=== PATIENT | female | born 1990 | race Caucasian/White ===

== ENCOUNTER 2020-11-26 07:21 | Inpatient (IN) ==
[2020-11-26] MEDS ORDERED: OXYTOCIN 30 UNITS/500 ML BAG IV PRN (08:23)
[2020-11-26 08:54] LABS: Hematocrit (blood only) 37.6 % (37-47); Hemoglobin 12.9 g/dL (12.0-16.0); Mean Corpuscular Hemoglobin 32.2 pg (25-34); Mean Corpuscular Hgb Conc 34.3 g/dL (32-36); Mean Corpuscular Volume 93.8 fL (80-100); Mean Platelet Volume 10.3 fL (7.4-10.4); Platelet Count 141 K/uL (130-400); RDW Coefficient of Variation 13.3 % (11.5-14.5); RDW Standard Deviation 45.7 fL (36.4-46.3); Red Blood Count 4.01 M/uL (4.2-5.4); White Blood Count 14.37 K/uL (4.8-10.8)
[2020-11-26] MEDS ORDERED: DINOPROSTONE 10 MG INSERT PV ONE (09:38)
--- NOTE | 2020-11-26 10:21 | History & Physical Report ---
Date of Service November 26, 2020 Assessment & Plan (1) Post-dates : Plan: Cervidil planned for cervical ripening discussed plan with patient and and are in agreement Admission and Anticipated Discharge Date Admission Date: November 26, 2020 History of Present Illness Chief Complaint: induction of labor for post-dates Primary Care Provider: Shannon Jurado, DO 30 F P0000 at 40.2 weeks with no problems here for induction of labor at 40.2 weeks. No contractions noted by patient. Allergies Allergy/AdvReac Type Severity Reaction Status Date / Time No Known Allergies Allergy Verified 11/26/20 08:15 Home Medications Medication Instructions Recorded Confirmed Type cetirizine 10 mg tablet (Zyrtec) 10 mg PO DAILY 11/26/20 11/26/20 History prenat.vits,aurelio,[id number] 1 tab PO DAILY 11/26/20 11/26/20 History Past Med/Surg History Medical History No known health problems Surgical History H/O wisdom tooth extraction Social History Smoking Status: Never smoker Hx Alcohol Use: No Hx Substance Use: No Preferred Language: Finnish Communication Ability: Effective Beliefs That Will Affect Care: None marital status: Current Living Situation: Spouse Other Information That Helps Us Care for You: No Feels Safe at Home: Yes Safety Concerns: Feels Safe At This Time Review of Systems Review of Systems: All systems reviewed & are unremarkable except as noted in HPI & below Physical Exam Constitutional: WD/WN, vitals as above Cardiovascular: RRR, no murmur, no edema Gastrointestinal (Abdomen): normal bowel sounds, soft, nontender, no hepatosplenomegaly Neurologic: patellar DTR's 2+ bilat, sensation intact Psychiatric: A+Ox3, euthymic affect Genitourinary: OB Exam Abdomen: + vertex and + estimated weight (8 lbs.) Manual OB Exam: + cervical dilation 1 cm, + cervical effacement 50% and + station high OB Exam Monitor Tracing: + external FHT monitor used, + external uterine monitor used, + category I and + normal FHT variability Cervix posterior and firm Cervidil 10 mg placed vaginally for cervical ripening Results & Data Results & Data ([facility]) Vital Signs (Past 12 Hours) Vital Signs Temp Pulse Resp BP 11/26/20 07:41 37.1 C 20 11/26/20 07:37 92 H 133/84 Laboratory Results 11/26/20 11/26/20 11/26/20 08:00 08:00 08:41 WBC 14.37 H RBC 4.01 L Hgb 12.9 Hct 37.6 MCV 93.8 MCH 32.2 MCHC 34.3 RDW Std Deviation 45.7 RDW Coeff of [place] 13.3 Plt Count 141 MPV 10.3 COVID-19 [facility] SARS-CoV-2, RNA, NAAT NEGATIVE Diagnostic Findings GBS is negative Covid is negative Code Status & VTE Plan VTE Prophylaxis Plan VTE Prophylaxis will be ordered: No
--- NOTE | 2020-11-26 22:34 | Labor Progress Brief Note ---
Date of Service November 26, 2020 Assessment & Plan Admission and Anticipated Discharge Date Admission Date: November 26, 2020 Physical Exam Genitourinary: Manual OB Exam: + cervical dilation 1 cm and 2 cm, + cervical effacement (cervix softening, will shower and eat and plan for PO Cytotec) 50% and + station high OB Exam Monitor Tracing: + external FHT monitor used, + external uterine monitor used, + category I and + normal FHT variability Results & Data ([facility]) Vital Signs (Past 12 Hours) Vital Signs Temp Pulse Resp BP 11/26/20 19:16 36.8 C 72 18 130/73 11/26/20 18:26 78 143/84 H 11/26/20 18:25 36.6 C 20 11/26/20 14:36 36.8 C 83 20 121/79 11/26/20 11:15 36.8 C 83 20 129/71
[2020-11-27] MEDS: miSOPROStoL 50 MCG TAB PO SCH ×2 (00:22→04:31)
[2020-11-27] MEDS ORDERED: BUTORPHANOL TARTRATE 1 MG/ML VIAL IV PRN (05:26)
[2020-11-27] MEDS ORDERED: ONDANSETRON INJ 2 MG/ML 2 ML VIAL IV PRN ×2 (05:26→07:15)
[2020-11-27] MEDS ORDERED: BUTORPHANOL TARTRATE 1 MG/ML VIAL ONE (05:28)
[2020-11-27] MEDS ORDERED: ONDANSETRON INJ 2 MG/ML 2 ML VIAL ONE (05:29)
[2020-11-27] MEDS: LACTATED RINGER'S 1,000 ML IV PRN ×3 (05:30→14:58)
[2020-11-27] MEDS ORDERED: SODIUM CHLORIDE 0.9% INJ 10 ML VIAL ONE (06:46)
[2020-11-27] MEDS ORDERED: BUPIVACAINE 0.25% 30 ML VIAL ONE (06:46)
[2020-11-27] MEDS ORDERED: ePHEDrine sulfate 50 MG/ML AMP ONE (06:46)
[2020-11-27] MEDS ORDERED: fentaNYL citrate 100 MCG/2 ML VIAL ONE (06:47)
[2020-11-27] MEDS ORDERED: fentaNYL 2MCG/ML ROPIVACAINE 1.25MG/ML 100 ML BAG EPI ONE (06:47)
[2020-11-27] MEDS ORDERED: fentaNYL 2MCG/ML ROPIVACAINE 1.25MG/ML 100 ML BAG EPI PRN (07:15)
[2020-11-27] MEDS ORDERED: ePHEDrine sulfate 50 MG/ML AMP IV PRN (07:15)
[2020-11-27] MEDS ORDERED: NALOXONE HCL 1 MG in SODIUM CHLORIDE 0.9% 1000ML 1,000 ML IV PRN (07:15)
[2020-11-27] MEDS ORDERED: diphenhydrAMINE 50 MG/ML VIAL IV PRN (07:15)
[2020-11-27] MEDS ORDERED: NALOXONE HCL 0.4 MG/1 ML VIAL/CARP IV PRN (07:15)
[2020-11-27] MEDS ORDERED: NALBUPHINE HCL INJ 10 MG/ML AMP IV PRN (07:15)
--- NOTE | 2020-11-27 07:20 | Anesthesiology Consultation ---
Date of Service November 27, 2020 Assessment & Plan Chart Review Chart Review: Patient NOT seen in Pre Admission Testing and Acceptable Risk for Labor Epidural Consults Requested none ASA ASA2 Proposed Anesthesia Anesthesia Type: Labor Epidural and CSE Risk / Benefits Reviewed With: PT / POA / Parent / Guardian, Accepts Plan and Informed Consent Obtained History Height/Weight Height: 5 ft 3 in Weight: 89.358 kg Allergies Allergy/AdvReac Type Severity Reaction Status Date / Time No Known Allergies Allergy Verified 11/26/20 08:15 Medications Home Medications Medication Instructions Recorded Confirmed Last Taken cetirizine 10 mg tablet (Zyrtec) 10 mg PO DAILY 11/26/20 11/26/20 11/25/20 21:00 prenat.vits,aurelio,[id number]-[id number]-ffmhn 1 tab PO DAILY 11/26/20 11/26/20 11/26/20 06:00 Active Medications Generic Name Dose Route Start Last Admin Trade Name Freq PRN Reason Stop Dose Admin Lactated Ringer's 1,000 mls @ 125 mls/hr 11/26/20 08:23 11/27/20 05:56 Lr IV 11/28/20 08:22 125 mls/hr .Q8H PRN Infusion L&D Protocol Protocol Misoprostol 50 mcg 11/27/20 00:00 11/27/20 04:31 Misoprostol 50 Mcg Tab PO 12/27/20 00:00 50 mcg Q4 GRACIA Administration NPO Date Last Intake of Fluids: 11/27/20 Time Last Intake of Fluids: 06:00 Date Last Intake of Solids: 11/26/20 Time Last Intake of Solids: 22:00 Past Medical History Medical History No known health problems Exercise / Class Metabolic Activity II 4-5 Yardwork/Stairs/Walk up hill Past Surgical History Surgical History H/O wisdom tooth extraction Past Anesthesia History No Hx of Anesthesia Complications and No Family Hx of Anesthesia Complications History of PONV No Hx of PONV and No Hx of Motion Sickness Social History Smoking Status: Never smoker Hx Alcohol Use: No Hx Substance Use: No Review of Systems no chest pain or sob Physical Exam Vital Signs Last Vital Signs Temp 36.8 C 11/27/20 04:25 Pulse 70 11/27/20 04:25 Resp 18 11/27/20 04:25 BP 130/69 11/27/20 04:25 SpO2 99 ENMT Mouth: no TMJ abnormality Thyromental Distance: > or= 3.5 Finger Breadths Mallampati Class: II Neck normal visual inspection Respiratory normal respiratory effort Auscultation: lungs clear to auscultation bilaterally Cardiovascular Rate/Rhythm: regular rate and regular rhythm Musculoskeletal Spine: normal cervical ROM Neurologic moves all extremities Psychiatric Orientation: alert and oriented x 3 Testing Laboratory Results 11/26/20 08:41
[2020-11-27] MEDS ORDERED: TERBUTALINE SULFATE 1 MG/ML VIAL ONE (08:17)
[2020-11-27] MEDS ORDERED: TERBUTALINE SULFATE 1 MG/ML VIAL SQ ONE (08:17)
--- NOTE | 2020-11-27 08:25 | Obstetrical Progress Note ---
Date of Service November 27, 2020 Assessment & Plan Admission and Anticipated Discharge Date Admission Date: November 26, 2020 Subjective Patient is seen and examined. I reviewed her records from office and confirmed with her. She is a 34-year-old G1, P0 at 40 weeks and 3 days of gestation, admitted for induction of labor for postdates yesterday. She has received Cervidil and then 2 doses of oral Cytotec. She started to have regular contractions this morning and received epidural for pain. She is comfortable now. No problems during this . GBS negative, coronavirus testing is negative. No history of STDs, no history of HSV, chlamydia, gonorrhea. Vital signs stable, afebrile, Vaginal exam, cervix is 5 cm dilated, 80% effaced, with bulging bag, AROM and with clear fluid, head at -1 station. heart rate had been category 1, baseline 120, scalp stimulation caused acceleration, deceleration to 90-100's after AROM. Noted to have contractions every 1 to 2 minutes, 6 contractions within 10 minutes, hyperstimulation. IV fluid bolus is started, nasal oxygen was given, she will be given terbutaline to relax the uterus, heart rate is back to 120s. Continue to monitor closely. Results & Data ([facility]) Vital Signs (Past 12 Hours) Vital Signs Temp Pulse Resp BP Pulse Ox 11/27/20 08:18 65 100 11/27/20 08:13 72 100 11/27/20 08:08 78 100 11/27/20 08:04 69 119/71 11/27/20 08:03 65 99 11/27/20 07:59 58 L 109/57 L 11/27/20 07:58 62 100 11/27/20 07:54 67 112/73 11/27/20 07:53 68 100 11/27/20 07:50 73 91 11/27/20 07:49 76 118/72 11/27/20 07:48 65 100 11/27/20 07:43 68 100 11/27/20 07:42 69 101/56 L 11/27/20 07:40 68 111/56 L 11/27/20 07:38 71 111/56 L 100 11/27/20 07:36 77 119/56 L 11/27/20 07:34 77 133/69 11/27/20 07:33 86 100 11/27/20 07:32 85 132/71 11/27/20 07:30 71 126/81 11/27/20 07:28 76 124/74 100 11/27/20 07:26 73 92 11/27/20 07:23 70 99 11/27/20 07:18 89 100 11/27/20 04:25 36.8 C 70 18 130/69 11/26/20 23:56 36.8 C 65 18 125/76
--- NOTE | 2020-11-27 08:44 | Obstetrical Progress Note ---
Date of Service November 27, 2020 Assessment & Plan Admission and Anticipated Discharge Date Admission Date: November 26, 2020 Subjective FHR 120's with good accels and moderate variability, no decels ctxs spaced out q 3 min Continue to monitor closely Results & Data ([facility]) Vital Signs (Past 12 Hours) Vital Signs Temp Pulse Resp BP Pulse Ox 11/27/20 08:38 69 100 11/27/20 08:35 60 107/60 11/27/20 08:33 72 100 11/27/20 08:28 66 100 11/27/20 08:23 68 100 11/27/20 08:20 57 L 18 117/70 11/27/20 08:18 65 100 11/27/20 08:13 72 100 11/27/20 08:08 78 100 11/27/20 08:04 69 18 119/71 11/27/20 08:03 65 99 11/27/20 07:59 58 L 109/57 L 11/27/20 07:58 62 100 11/27/20 07:54 67 112/73 11/27/20 07:53 68 100 11/27/20 07:50 73 18 91 11/27/20 07:49 76 118/72 11/27/20 07:48 65 100 11/27/20 07:45 18 11/27/20 07:43 68 100 11/27/20 07:42 69 101/56 L 11/27/20 07:40 68 20 111/56 L 11/27/20 07:38 71 111/56 L 100 11/27/20 07:36 77 119/56 L 11/27/20 07:34 77 133/69 11/27/20 07:33 86 100 11/27/20 07:32 85 132/71 11/27/20 07:30 71 126/81 11/27/20 07:28 76 124/74 100 11/27/20 07:26 73 92 11/27/20 07:23 70 99 11/27/20 07:18 89 100 11/27/20 04:25 36.8 C 70 18 130/69 11/26/20 23:56 36.8 C 65 18 125/76
[2020-11-27] MEDS ORDERED: OXYTOCIN 30 UNITS/500 ML BAG IV PRN ×2 (11:59→22:55)
--- NOTE | 2020-11-27 12:02 | Obstetrical Progress Note ---
Date of Service November 27, 2020 Assessment & Plan Admission and Anticipated Discharge Date Admission Date: November 26, 2020 Subjective Patient is reevaluated. She has been comfortable and no complaints. Vital signs stable, afebrile, heart rate had been category 1. Vaginal exam cervix is 6 cm dilated, 80% effaced, head at 0 station, coned head, sagittal suture transverse No accepted cervical change Will change positions and start low dose pitocin per protocol Continue to monitor Results & Data ([facility]) Vital Signs (Past 12 Hours) Vital Signs Temp Pulse Resp BP Pulse Ox 11/27/20 11:58 85 100 11/27/20 11:53 83 100 11/27/20 11:52 100 H 92 11/27/20 11:51 79 136/74 11/27/20 11:48 72 99 11/27/20 11:43 73 99 11/27/20 11:38 73 99 11/27/20 11:35 93 H 126/72 11/27/20 11:33 72 98 11/27/20 11:28 72 98 11/27/20 11:23 73 99 11/27/20 11:20 82 135/73 11/27/20 11:18 72 99 11/27/20 11:13 72 98 11/27/20 11:08 80 99 11/27/20 11:05 77 134/72 11/27/20 11:03 76 99 11/27/20 10:58 76 100 11/27/20 10:53 91 H 100 11/27/20 10:51 83 128/68 11/27/20 10:48 86 99 11/27/20 10:43 87 100 11/27/20 10:38 82 100 11/27/20 10:35 85 139/72 11/27/20 10:33 85 100 11/27/20 10:28 92 H 100 11/27/20 10:23 97 H 100 11/27/20 10:21 91 H 140/81 11/27/20 10:18 89 99 11/27/20 10:13 98 H 100 11/27/20 10:08 64 98 11/27/20 10:07 68 111/64 11/27/20 10:03 82 99 11/27/20 09:58 68 100 11/27/20 09:53 69 99 11/27/20 09:52 70 115/57 L 11/27/20 09:48 75 98 11/27/20 09:43 66 99 11/27/20 09:38 73 98 11/27/20 09:35 66 119/58 L 11/27/20 09:33 66 100 11/27/20 09:28 73 100 11/27/20 09:23 73 99 11/27/20 09:21 68 126/59 L 11/27/20 09:18 72 100 11/27/20 09:13 68 100 11/27/20 09:08 72 100 11/27/20 09:06 69 109/56 L 11/27/20 09:03 76 100 11/27/20 08:58 75 100 11/27/20 08:53 80 100 11/27/20 08:51 71 118/56 L 11/27/20 08:48 73 100 11/27/20 08:43 79 100 11/27/20 08:38 69 100 11/27/20 08:35 60 107/60 11/27/20 08:33 72 100 11/27/20 08:28 66 100 11/27/20 08:23 68 100 11/27/20 08:20 57 L 18 117/70 11/27/20 08:18 65 100 11/27/20 08:13 72 100 11/27/20 08:08 78 100 11/27/20 08:04 69 18 119/71 11/27/20 08:03 65 99 11/27/20 07:59 58 L 109/57 L 11/27/20 07:58 62 100 11/27/20 07:54 67 112/73 11/27/20 07:53 68 100 11/27/20 07:50 73 18 91 11/27/20 07:49 76 118/72 11/27/20 07:48 65 100 11/27/20 07:45 18 11/27/20 07:43 68 100 11/27/20 07:42 69 101/56 L 11/27/20 07:40 68 20 111/56 L 11/27/20 07:38 71 111/56 L 100 11/27/20 07:36 77 119/56 L 11/27/20 07:34 77 133/69 11/27/20 07:33 86 100 11/27/20 07:32 85 132/71 11/27/20 07:30 71 126/81 11/27/20 07:28 76 124/74 100 11/27/20 07:26 73 92 11/27/20 07:23 70 99 11/27/20 07:18 89 100 11/27/20 04:25 36.8 C 70 18 130/69
--- NOTE | 2020-11-27 14:39 | Obstetrical Progress Note ---
Date of Service November 27, 2020 Assessment & Plan Admission and Anticipated Discharge Date Admission Date: November 26, 2020 Subjective Patient is seen and examined. She feels well no complaints. Vital signs stable afebrile, heart rate has been category 1. External toco has been showing contractions every 1 to 2 minutes, mild to moderate with palpation per nursing team. Pitocin is at 6 mIU/min. Cervix is 6 to 7 cm, 80% effaced, head is coned, tip of the coned head is at +1 station, anterior fontanelle is at 5 o'clock position. IUPC is placed to monitor contractions more accurately, high baseline uterine tone at 50 mvu, increases to 60's with contractions, those felt mild with palpation Bed side US: unable to measure BPD/ HC due to head being in pelvis but AC: measuring 41-42 wks, FL 75 mm. EFW: 8-9 lb Plan to adjust pitocin per contraction pattern and continue to monitor closely Results & Data ([facility]) Vital Signs (Past 12 Hours) Vital Signs Temp Pulse Resp BP Pulse Ox 11/27/20 14:33 96 H 98 11/27/20 14:28 77 98 11/27/20 14:23 89 98 11/27/20 14:20 93 H 133/72 11/27/20 14:18 86 99 11/27/20 14:13 85 98 11/27/20 14:08 98 H 99 11/27/20 14:05 87 139/78 11/27/20 14:03 87 100 11/27/20 13:58 100 H 99 11/27/20 13:53 101 H 98 11/27/20 13:51 86 131/74 11/27/20 13:48 71 97 11/27/20 13:43 69 98 11/27/20 13:38 73 97 11/27/20 13:36 84 138/71 11/27/20 13:33 73 98 11/27/20 13:28 92 H 99 11/27/20 13:23 75 98 11/27/20 13:21 73 127/66 11/27/20 13:18 74 98 11/27/20 13:13 70 98 11/27/20 13:08 79 98 11/27/20 13:06 83 130/76 11/27/20 13:03 98 H 98 11/27/20 12:58 77 100 11/27/20 12:53 74 100 11/27/20 12:50 76 119/62 11/27/20 12:48 72 100 11/27/20 12:43 80 100 11/27/20 12:38 81 97 11/27/20 12:36 75 119/60 11/27/20 12:33 78 99 11/27/20 12:28 36.8 C 89 18 100 11/27/20 12:23 76 100 11/27/20 12:21 83 126/62 11/27/20 12:18 78 99 11/27/20 12:13 70 98 11/27/20 12:08 79 100 11/27/20 12:06 69 118/61 11/27/20 12:03 71 99 11/27/20 11:58 85 100 11/27/20 11:53 83 18 100 11/27/20 11:52 100 H 92 11/27/20 11:51 79 136/74 11/27/20 11:48 72 99 11/27/20 11:43 73 99 11/27/20 11:38 73 99 11/27/20 11:35 93 H 126/72 11/27/20 11:33 72 98 11/27/20 11:28 72 98 11/27/20 11:23 73 99 11/27/20 11:20 82 135/73 11/27/20 11:18 72 99 11/27/20 11:13 72 98 11/27/20 11:08 80 99 11/27/20 11:05 77 134/72 11/27/20 11:03 76 99 11/27/20 10:58 76 100 11/27/20 10:53 91 H 18 100 11/27/20 10:51 83 128/68 11/27/20 10:48 86 99 11/27/20 10:43 87 100 11/27/20 10:38 82 100 11/27/20 10:35 85 139/72 11/27/20 10:33 85 100 11/27/20 10:28 92 H 100 11/27/20 10:23 97 H 100 11/27/20 10:21 91 H 140/81 11/27/20 10:18 89 99 11/27/20 10:13 98 H 100 11/27/20 10:08 64 98 11/27/20 10:07 68 111/64 11/27/20 10:03 82 99 11/27/20 09:58 68 100 11/27/20 09:53 69 99 11/27/20 09:52 70 18 115/57 L 11/27/20 09:48 75 98 11/27/20 09:43 66 99 11/27/20 09:38 73 98 11/27/20 09:35 66 119/58 L 11/27/20 09:33 66 100 11/27/20 09:28 73 100 11/27/20 09:23 73 99 11/27/20 09:21 68 126/59 L 11/27/20 09:18 72 100 11/27/20 09:13 68 100 11/27/20 09:08 72 100 11/27/20 09:06 69 109/56 L 11/27/20 09:03 76 100 11/27/20 08:58 75 100 11/27/20 08:53 80 100 11/27/20 08:51 71 18 118/56 L 11/27/20 08:48 73 100 11/27/20 08:43 79 100 11/27/20 08:38 69 100 11/27/20 08:35 60 18 107/60 11/27/20 08:33 72 100 11/27/20 08:28 66 100 11/27/20 08:23 68 100 11/27/20 08:20 57 L 18 117/70 11/27/20 08:18 65 100 11/27/20 08:13 72 100 11/27/20 08:08 78 100 11/27/20 08:04 69 18 119/71 11/27/20 08:03 65 99 11/27/20 07:59 58 L 109/57 L 11/27/20 07:58 62 100 11/27/20 07:54 67 112/73 11/27/20 07:53 68 100 11/27/20 07:50 73 18 91 11/27/20 07:49 76 118/72 11/27/20 07:48 65 100 11/27/20 07:45 18 11/27/20 07:43 68 100 11/27/20 07:42 69 101/56 L 11/27/20 07:40 68 20 111/56 L 11/27/20 07:38 71 111/56 L 100 11/27/20 07:36 77 119/56 L 11/27/20 07:34 77 133/69 11/27/20 07:33 86 100 11/27/20 07:32 85 132/71 11/27/20 07:30 71 126/81 11/27/20 07:28 36.9 C 76 24 124/74 100 11/27/20 07:26 73 92 11/27/20 07:23 70 99 11/27/20 07:18 89 100 11/27/20 04:25 36.8 C 70 18 130/69
--- NOTE | 2020-11-27 17:07 | Obstetrical Progress Note ---
Date of Service November 27, 2020 Assessment & Plan Admission and Anticipated Discharge Date Admission Date: November 26, 2020 Results & Data ([facility]) Vital Signs (Past 12 Hours) Vital Signs Temp Pulse Resp BP Pulse Ox 11/27/20 15:13 73 98 11/27/20 15:08 83 98 11/27/20 15:05 77 141/82 H 11/27/20 15:03 79 99 11/27/20 14:58 87 97 11/27/20 14:53 80 99 11/27/20 14:50 86 148/68 H 11/27/20 14:48 99 H 100 11/27/20 14:43 80 99 11/27/20 14:38 80 99 11/27/20 14:36 82 152/65 H 11/27/20 14:33 96 H 98 11/27/20 14:28 77 98 11/27/20 14:23 89 98 11/27/20 14:20 93 H 133/72 11/27/20 14:18 86 99 11/27/20 14:13 85 98 11/27/20 14:08 98 H 99 11/27/20 14:05 87 139/78 11/27/20 14:03 87 100 11/27/20 13:58 100 H 99 11/27/20 13:53 101 H 98 11/27/20 13:51 86 131/74 11/27/20 13:48 71 97 11/27/20 13:43 69 98 11/27/20 13:38 73 97 11/27/20 13:36 84 138/71 11/27/20 13:33 73 98 11/27/20 13:28 92 H 99 11/27/20 13:23 75 98 11/27/20 13:21 73 127/66 11/27/20 13:18 74 98 11/27/20 13:13 70 98 11/27/20 13:08 79 98 11/27/20 13:06 83 130/76 11/27/20 13:03 98 H 98 11/27/20 12:58 77 100 11/27/20 12:53 74 100 11/27/20 12:50 76 119/62 11/27/20 12:48 72 100 11/27/20 12:43 80 100 11/27/20 12:38 81 97 11/27/20 12:36 75 119/60 11/27/20 12:33 78 99 11/27/20 12:28 36.8 C 89 18 100 11/27/20 12:23 76 100 11/27/20 12:21 83 126/62 11/27/20 12:18 78 99 11/27/20 12:13 70 98 11/27/20 12:08 79 100 11/27/20 12:06 69 118/61 11/27/20 12:03 71 99 11/27/20 11:58 85 100 11/27/20 11:53 83 18 100 11/27/20 11:52 100 H 92 11/27/20 11:51 79 136/74 11/27/20 11:48 72 99 11/27/20 11:43 73 99 11/27/20 11:38 73 99 11/27/20 11:35 93 H 126/72 11/27/20 11:33 72 98 11/27/20 11:28 72 98 11/27/20 11:23 73 99 11/27/20 11:20 82 135/73 11/27/20 11:18 72 99 11/27/20 11:13 72 98 11/27/20 11:08 80 99 11/27/20 11:05 77 134/72 11/27/20 11:03 76 99 11/27/20 10:58 76 100 11/27/20 10:53 91 H 18 100 11/27/20 10:51 83 128/68 11/27/20 10:48 86 99 11/27/20 10:43 87 100 11/27/20 10:38 82 100 11/27/20 10:35 85 139/72 11/27/20 10:33 85 100 11/27/20 10:28 92 H 100 11/27/20 10:23 97 H 100 11/27/20 10:21 91 H 140/81 11/27/20 10:18 89 99 11/27/20 10:13 98 H 100 11/27/20 10:08 64 98 11/27/20 10:07 68 111/64 11/27/20 10:03 82 99 11/27/20 09:58 68 100 11/27/20 09:53 69 99 11/27/20 09:52 70 18 115/57 L 11/27/20 09:48 75 98 07/30/21 09:43 66 99 11/27/20 09:38 73 98 11/27/20 09:35 66 119/58 L 11/27/20 09:33 66 100 11/27/20 09:28 73 100 11/27/20 09:23 73 99 11/27/20 09:21 68 126/59 L 11/27/20 09:18 72 100 11/27/20 09:13 68 100 11/27/20 09:08 72 100 11/27/20 09:06 69 109/56 L 11/27/20 09:03 76 100 11/27/20 08:58 75 100 11/27/20 08:53 80 100 11/27/20 08:51 71 18 118/56 L 11/27/20 08:48 73 100 11/27/20 08:43 79 100 11/27/20 08:38 69 100 11/27/20 08:35 60 18 107/60 11/27/20 08:33 72 100 11/27/20 08:28 66 100 11/27/20 08:23 68 100 11/27/20 08:20 57 L 18 117/70 11/27/20 08:18 65 100 11/27/20 08:13 72 100 11/27/20 08:08 78 100 11/27/20 08:04 69 18 119/71 11/27/20 08:03 65 99 11/27/20 07:59 58 L 109/57 L 11/27/20 07:58 62 100 11/27/20 07:54 67 112/73 11/27/20 07:53 68 100 11/27/20 07:50 73 18 91 11/27/20 07:49 76 118/72 11/27/20 07:48 65 100 11/27/20 07:45 18 11/27/20 07:43 68 100 11/27/20 07:42 69 101/56 L 11/27/20 07:40 68 20 111/56 L 11/27/20 07:38 71 111/56 L 100 11/27/20 07:36 77 119/56 L 11/27/20 07:34 77 133/69 11/27/20 07:33 86 100 11/27/20 07:32 85 132/71 11/27/20 07:30 71 126/81 07/30/21 07:28 36.9 C 76 24 124/74 100 11/27/20 07:26 73 92 11/27/20 07:23 70 99 11/27/20 07:18 89 100 11/27/20 04:25 36.8 C 70 18 130/69
--- NOTE | 2020-11-27 17:13 | Obstetrical Progress Note ---
Date of Service November 27, 2020 Assessment & Plan Admission and Anticipated Discharge Date Admission Date: November 26, 2020 Subjective Patient is reevaluated. She feels pressure in vagina. Vital signs stable afebrile, heart rate category 1, IUPC has been showing mild irregular contractions, [place] unit is between 110- 200, Pitocin has been increased till 14 mIU/min. Cervix is 7-8 cm, 80% head is called and at +1 station, IUPC is removed. External toco is applied and now showing contractions every 1 to 2 minutes with a higher amplitude. Assessment and plan 30-year-old G1, P0 at 40 weeks and 3 days of gestation induction of labor since yesterday, AROM around 9 hours ago with protracted labor, heart rate reassuring. Discussed continuing with Pitocin versus primary section. Discussed is a major surgery with risks including but not limited to bleeding, infection, injury to surrounding organs like bowels bladder, increased risk of DVT and longer recovery. Patient understands all and desires to continue with trial of labor. All questions were answered. Results & Data ([facility]) Vital Signs (Past 12 Hours) Vital Signs Temp Pulse Resp BP Pulse Ox 11/27/20 17:05 73 127/58 L 11/27/20 17:03 87 99 11/27/20 16:58 90 99 11/27/20 16:53 79 99 11/27/20 16:50 81 119/61 11/27/20 16:48 82 100 11/27/20 16:43 68 99 11/27/20 16:38 68 98 11/27/20 16:36 68 117/59 L 11/27/20 16:33 70 99 11/27/20 16:28 73 99 11/27/20 16:23 73 99 11/27/20 16:21 37.0 C 78 18 119/56 L 100 11/27/20 16:18 66 99 11/27/20 16:13 67 98 11/27/20 16:08 65 98 11/27/20 16:05 75 121/68 11/27/20 16:03 85 100 11/27/20 15:58 85 100 11/27/20 15:53 80 99 11/27/20 15:51 74 18 124/59 L 11/27/20 15:48 65 99 11/27/20 15:43 73 98 11/27/20 15:38 76 99 11/27/20 15:35 76 125/72 11/27/20 15:33 98 H 99 11/27/20 15:28 76 99 11/27/20 15:23 99 H 97 11/27/20 15:20 92 H 136/91 11/27/20 15:18 76 98 11/27/20 15:13 73 98 11/27/20 15:08 83 98 11/27/20 15:05 77 141/82 H 11/27/20 15:03 79 99 11/27/20 14:58 87 97 11/27/20 14:53 80 99 11/27/20 14:50 86 18 148/68 H 11/27/20 14:48 99 H 100 11/27/20 14:43 80 99 11/27/20 14:38 80 99 11/27/20 14:36 36.8 C 82 18 152/65 H 11/27/20 14:33 96 H 98 11/27/20 14:28 77 98 11/27/20 14:23 89 98 11/27/20 14:20 93 H 133/72 11/27/20 14:18 86 99 11/27/20 14:13 85 98 11/27/20 14:08 98 H 99 11/27/20 14:05 87 139/78 11/27/20 14:03 87 100 11/27/20 13:58 100 H 99 11/27/20 13:53 101 H 98 11/27/20 13:51 86 18 131/74 11/27/20 13:48 71 97 11/27/20 13:43 69 98 11/27/20 13:38 73 97 11/27/20 13:36 84 138/71 11/27/20 13:33 73 98 11/27/20 13:28 92 H 99 11/27/20 13:23 75 98 11/27/20 13:21 73 127/66 11/27/20 13:18 74 98 11/27/20 13:13 70 98 11/27/20 13:08 79 98 11/27/20 13:06 83 130/76 11/27/20 13:03 98 H 98 11/27/20 12:58 77 100 11/27/20 12:53 74 100 11/27/20 12:50 76 18 119/62 11/27/20 12:48 72 100 11/27/20 12:43 80 100 11/27/20 12:38 81 97 11/27/20 12:36 75 119/60 11/27/20 12:33 78 99 11/27/20 12:28 36.8 C 89 18 100 11/27/20 12:23 76 100 11/27/20 12:21 83 126/62 11/27/20 12:18 78 99 11/27/20 12:13 70 98 11/27/20 12:08 79 100 11/27/20 12:06 69 118/61 11/27/20 12:03 71 99 11/27/20 11:58 85 100 11/27/20 11:53 83 18 100 11/27/20 11:52 100 H 92 11/27/20 11:51 79 136/74 11/27/20 11:48 72 99 11/27/20 11:43 73 99 11/27/20 11:38 73 99 11/27/20 11:35 93 H 126/72 11/27/20 11:33 72 98 11/27/20 11:28 72 98 11/27/20 11:23 73 99 11/27/20 11:20 82 135/73 11/27/20 11:18 72 99 11/27/20 11:13 72 98 11/27/20 11:08 80 99 11/27/20 11:05 77 134/72 11/27/20 11:03 76 99 11/27/20 10:58 76 100 11/27/20 10:53 91 H 18 100 11/27/20 10:51 83 128/68 11/27/20 10:48 86 99 11/27/20 10:43 87 100 11/27/20 10:38 82 100 11/27/20 10:35 85 139/72 11/27/20 10:33 85 100 11/27/20 10:28 92 H 100 11/27/20 10:23 97 H 100 11/27/20 10:21 91 H 140/81 11/27/20 10:18 89 99 11/27/20 10:13 98 H 100 11/27/20 10:08 64 98 11/27/20 10:07 68 111/64 11/27/20 10:03 82 99 11/27/20 09:58 68 100 11/27/20 09:53 69 99 11/27/20 09:52 70 18 115/57 L 11/27/20 09:48 75 98 11/27/20 09:43 66 99 11/27/20 09:38 73 98 11/27/20 09:35 66 119/58 L 11/27/20 09:33 66 100 11/27/20 09:28 73 100 11/27/20 09:23 73 99 11/27/20 09:21 68 126/59 L 11/27/20 09:18 72 100 11/27/20 09:13 68 100 11/27/20 09:08 72 100 11/27/20 09:06 69 109/56 L 11/27/20 09:03 76 100 11/27/20 08:58 75 100 11/27/20 08:53 80 100 11/27/20 08:51 71 18 118/56 L 11/27/20 08:48 73 100 11/27/20 08:43 79 100 11/27/20 08:38 69 100 11/27/20 08:35 60 18 107/60 11/27/20 08:33 72 100 11/27/20 08:28 66 100 11/27/20 08:23 68 100 11/27/20 08:20 57 L 18 117/70 11/27/20 08:18 65 100 11/27/20 08:13 72 100 11/27/20 08:08 78 100 11/27/20 08:04 69 18 119/71 11/27/20 08:03 65 99 11/27/20 07:59 58 L 109/57 L 11/27/20 07:58 62 100 11/27/20 07:54 67 112/73 11/27/20 07:53 68 100 11/27/20 07:50 73 18 91 11/27/20 07:49 76 118/72 11/27/20 07:48 65 100 11/27/20 07:45 18 11/27/20 07:43 68 100 11/27/20 07:42 69 101/56 L 11/27/20 07:40 68 20 111/56 L 11/27/20 07:38 71 111/56 L 100 11/27/20 07:36 77 119/56 L 11/27/20 07:34 77 133/69 11/27/20 07:33 86 100 11/27/20 07:32 85 132/71 11/27/20 07:30 71 126/81 11/27/20 07:28 36.9 C 76 24 124/74 100 11/27/20 07:26 73 92 11/27/20 07:23 70 99 11/27/20 07:18 89 100
--- NOTE | 2020-11-27 19:42 | Obstetrical Progress Note ---
Date of Service November 27, 2020 Assessment & Plan Admission and Anticipated Discharge Date Admission Date: November 26, 2020 Subjective Patient is reevaluated. She feels some back pain but no pain in abdomen no pressure in vagina. Vital signs stable afebrile, heart rate reassuring, Cervix is fully dilated, head is at +2 station with caput. [place] is taken out and she had trial of pushes but does not feel any urge to push. Decrease epidural to half of baseline and labor down until she feels pressure or urge. Continue to monitor. Results & Data ([facility]) Vital Signs (Past 12 Hours) Vital Signs Temp Pulse Resp BP Pulse Ox 11/27/20 19:38 97 H 98 11/27/20 19:36 81 137/63 11/27/20 19:33 119 H 100 11/27/20 19:28 91 H 100 11/27/20 19:25 115 H 90 11/27/20 19:23 96 H 100 11/27/20 19:21 85 128/74 11/27/20 19:18 84 100 11/27/20 19:17 94 H 93 11/27/20 19:15 36.8 C 18 11/27/20 19:13 98 H 100 11/27/20 19:08 95 H 100 11/27/20 19:06 88 142/70 H 11/27/20 19:03 90 100 11/27/20 18:58 85 98 11/27/20 18:53 87 100 11/27/20 18:50 81 141/72 H 11/27/20 18:48 74 99 11/27/20 18:43 80 99 11/27/20 18:38 79 99 11/27/20 18:36 83 138/83 11/27/20 18:33 88 99 11/27/20 18:32 86 143/74 H 11/27/20 18:30 36.9 C 90 18 143/74 H 98 11/27/20 18:28 109 H 99 11/27/20 18:23 89 99 11/27/20 18:20 74 116/56 L 11/27/20 18:18 73 98 11/27/20 18:13 70 98 11/27/20 18:08 70 97 11/27/20 18:07 75 116/56 L 11/27/20 18:03 76 98 11/27/20 17:58 76 99 11/27/20 17:53 95 H 100 11/27/20 17:51 71 18 127/59 L 11/27/20 17:48 71 98 11/27/20 17:43 83 99 11/27/20 17:38 74 99 11/27/20 17:35 85 127/71 11/27/20 17:33 82 99 11/27/20 17:28 83 100 11/27/20 17:23 81 99 11/27/20 17:20 86 133/59 L 11/27/20 17:18 91 H 99 11/27/20 17:13 73 98 11/27/20 17:08 73 98 11/27/20 17:05 73 127/58 L 11/27/20 17:03 87 99 11/27/20 16:58 90 99 11/27/20 16:53 79 99 11/27/20 16:50 81 18 119/61 11/27/20 16:48 82 100 11/27/20 16:43 68 99 11/27/20 16:38 68 98 11/27/20 16:36 68 117/59 L 11/27/20 16:33 70 99 11/27/20 16:28 73 99 11/27/20 16:23 73 99 11/27/20 16:21 37.0 C 78 18 119/56 L 100 11/27/20 16:18 66 99 11/27/20 16:13 67 98 11/27/20 16:08 65 98 11/27/20 16:05 75 121/68 11/27/20 16:03 85 100 11/27/20 15:58 85 100 11/27/20 15:53 80 99 11/27/20 15:51 74 18 124/59 L 11/27/20 15:48 65 99 11/27/20 15:43 73 98 11/27/20 15:38 76 99 11/27/20 15:35 76 125/72 11/27/20 15:33 98 H 99 11/27/20 15:28 76 99 11/27/20 15:23 99 H 97 11/27/20 15:20 92 H 136/91 11/27/20 15:18 76 98 11/27/20 15:13 73 98 11/27/20 15:08 83 98 11/27/20 15:05 77 141/82 H 11/27/20 15:03 79 99 11/27/20 14:58 87 97 11/27/20 14:53 80 99 11/27/20 14:50 86 18 148/68 H 11/27/20 14:48 99 H 100 11/27/20 14:43 80 99 11/27/20 14:38 80 99 11/27/20 14:36 36.8 C 82 18 152/65 H 11/27/20 14:33 96 H 98 11/27/20 14:28 77 98 11/27/20 14:23 89 98 11/27/20 14:20 93 H 133/72 11/27/20 14:18 86 99 11/27/20 14:13 85 98 11/27/20 14:08 98 H 99 11/27/20 14:05 87 139/78 11/27/20 14:03 87 100 11/27/20 13:58 100 H 99 11/27/20 13:53 101 H 98 11/27/20 13:51 86 18 131/74 11/27/20 13:48 71 97 11/27/20 13:43 69 98 11/27/20 13:38 73 97 11/27/20 13:36 84 138/71 11/27/20 13:33 73 98 11/27/20 13:28 92 H 99 11/27/20 13:23 75 98 11/27/20 13:21 73 127/66 11/27/20 13:18 74 98 11/27/20 13:13 70 98 11/27/20 13:08 79 98 11/27/20 13:06 83 130/76 11/27/20 13:03 98 H 98 11/27/20 12:58 77 100 11/27/20 12:53 74 100 11/27/20 12:50 76 18 119/62 11/27/20 12:48 72 100 11/27/20 12:43 80 100 11/27/20 12:38 81 97 11/27/20 12:36 75 119/60 11/27/20 12:33 78 99 11/27/20 12:28 36.8 C 89 18 100 11/27/20 12:23 76 100 11/27/20 12:21 83 126/62 11/27/20 12:18 78 99 11/27/20 12:13 70 98 11/27/20 12:08 79 100 11/27/20 12:06 69 118/61 11/27/20 12:03 71 99 11/27/20 11:58 85 100 11/27/20 11:53 83 18 100 11/27/20 11:52 100 H 92 11/27/20 11:51 79 136/74 11/27/20 11:48 72 99 11/27/20 11:43 73 99 11/27/20 11:38 73 99 11/27/20 11:35 93 H 126/72 11/27/20 11:33 72 98 11/27/20 11:28 72 98 11/27/20 11:23 73 99 11/27/20 11:20 82 135/73 11/27/20 11:18 72 99 11/27/20 11:13 72 98 11/27/20 11:08 80 99 11/27/20 11:05 77 134/72 11/27/20 11:03 76 99 11/27/20 10:58 76 100 11/27/20 10:53 91 H 18 100 11/27/20 10:51 83 128/68 11/27/20 10:48 86 99 11/27/20 10:43 87 100 11/27/20 10:38 82 100 11/27/20 10:35 85 139/72 11/27/20 10:33 85 100 11/27/20 10:28 92 H 100 11/27/20 10:23 97 H 100 11/27/20 10:21 91 H 140/81 11/27/20 10:18 89 99 11/27/20 10:13 98 H 100 11/27/20 10:08 64 98 11/27/20 10:07 68 111/64 11/27/20 10:03 82 99 11/27/20 09:58 68 100 11/27/20 09:53 69 99 11/27/20 09:52 70 18 115/57 L 11/27/20 09:48 75 98 11/27/20 09:43 66 99 11/27/20 09:38 73 98 11/27/20 09:35 66 119/58 L 11/27/20 09:33 66 100 11/27/20 09:28 73 100 07/30/21 09:23 73 99 11/27/20 09:21 68 126/59 L 11/27/20 09:18 72 100 11/27/20 09:13 68 100 11/27/20 09:08 72 100 11/27/20 09:06 69 109/56 L 11/27/20 09:03 76 100 11/27/20 08:58 75 100 11/27/20 08:53 80 100 11/27/20 08:51 71 18 118/56 L 11/27/20 08:48 73 100 11/27/20 08:43 79 100 11/27/20 08:38 69 100 11/27/20 08:35 60 18 107/60 11/27/20 08:33 72 100 11/27/20 08:28 66 100 11/27/20 08:23 68 100 11/27/20 08:20 57 L 18 117/70 11/27/20 08:18 65 100 11/27/20 08:13 72 100 11/27/20 08:08 78 100 11/27/20 08:04 69 18 119/71 11/27/20 08:03 65 99 11/27/20 07:59 58 L 109/57 L 11/27/20 07:58 62 100 11/27/20 07:54 67 112/73 11/27/20 07:53 68 100 11/27/20 07:50 73 18 91 11/27/20 07:49 76 118/72 11/27/20 07:48 65 100 11/27/20 07:45 18 11/27/20 07:43 68 100 11/27/20 07:42 69 101/56 L
[2020-11-27] MEDS ORDERED: MINERAL OIL 30 ML UDC ONE ×2 (21:07→21:54)
--- NOTE | 2020-11-27 21:24 | Obstetrical Progress Note ---
Date of Service November 27, 2020 Assessment & Plan Admission and Anticipated Discharge Date Admission Date: November 26, 2020 Subjective Patient started to feel pressure and urge to push. She has been pushing for the last half an hour. Caput is partially visible during pushing upon opening the labia. Head is at +2-3 station. heart rate category 1. Contractions every 2 to 3 minutes. Continue to monitor closely. Results & Data ([facility]) Vital Signs (Past 12 Hours) Vital Signs Temp Pulse Resp BP Pulse Ox 11/27/20 21:18 104 H 99 11/27/20 21:13 127 H 99 11/27/20 21:08 95 H 98 11/27/20 21:03 95 H 99 11/27/20 21:00 36.8 C 18 11/27/20 20:58 90 99 11/27/20 20:53 88 98 11/27/20 20:51 92 H 140/87 11/27/20 20:48 98 H 99 11/27/20 20:43 103 H 99 11/27/20 20:38 109 H 100 11/27/20 20:36 97 H 157/83 H 11/27/20 20:33 110 H 90 11/27/20 20:28 110 H 99 11/27/20 20:27 111 H 93 11/27/20 20:23 103 H 93 11/27/20 20:22 99 H 93 11/27/20 20:20 90 127/60 11/27/20 20:18 83 99 11/27/20 20:13 79 100 11/27/20 20:08 83 99 11/27/20 20:06 93 H 140/78 11/27/20 20:03 91 H 99 11/27/20 19:59 99 H 93 11/27/20 19:58 107 H 100 11/27/20 19:53 106 H 93 11/27/20 19:51 82 139/66 11/27/20 19:48 80 100 11/27/20 19:43 87 99 11/27/20 19:38 97 H 98 11/27/20 19:36 81 137/63 11/27/20 19:33 119 H 100 11/27/20 19:28 91 H 100 11/27/20 19:25 115 H 90 11/27/20 19:23 96 H 100 11/27/20 19:21 85 128/74 11/27/20 19:18 84 100 11/27/20 19:17 94 H 93 11/27/20 19:15 36.8 C 18 11/27/20 19:13 98 H 100 11/27/20 19:08 95 H 100 11/27/20 19:06 88 142/70 H 11/27/20 19:03 90 100 11/27/20 18:58 85 98 11/27/20 18:53 87 100 11/27/20 18:50 81 141/72 H 11/27/20 18:48 74 99 11/27/20 18:43 80 99 11/27/20 18:38 79 99 11/27/20 18:36 83 138/83 11/27/20 18:33 88 99 11/27/20 18:32 86 143/74 H 11/27/20 18:30 36.9 C 90 18 143/74 H 98 11/27/20 18:28 109 H 99 11/27/20 18:23 89 99 11/27/20 18:20 74 116/56 L 11/27/20 18:18 73 98 11/27/20 18:13 70 98 11/27/20 18:08 70 97 11/27/20 18:07 75 116/56 L 11/27/20 18:03 76 98 11/27/20 17:58 76 99 11/27/20 17:53 95 H 100 11/27/20 17:51 71 18 127/59 L 11/27/20 17:48 71 98 11/27/20 17:43 83 99 11/27/20 17:38 74 99 11/27/20 17:35 85 127/71 11/27/20 17:33 82 99 11/27/20 17:28 83 100 11/27/20 17:23 81 99 11/27/20 17:20 86 133/59 L 11/27/20 17:18 91 H 99 11/27/20 17:13 73 98 11/27/20 17:08 73 98 11/27/20 17:05 73 127/58 L 11/27/20 17:03 87 99 11/27/20 16:58 90 99 11/27/20 16:53 79 99 11/27/20 16:50 81 18 119/61 11/27/20 16:48 82 100 11/27/20 16:43 68 99 11/27/20 16:38 68 98 11/27/20 16:36 68 117/59 L 11/27/20 16:33 70 99 11/27/20 16:28 73 99 11/27/20 16:23 73 99 11/27/20 16:21 37.0 C 78 18 119/56 L 100 11/27/20 16:18 66 99 11/27/20 16:13 67 98 11/27/20 16:08 65 98 11/27/20 16:05 75 121/68 11/27/20 16:03 85 100 11/27/20 15:58 85 100 11/27/20 15:53 80 99 11/27/20 15:51 74 18 124/59 L 11/27/20 15:48 65 99 11/27/20 15:43 73 98 11/27/20 15:38 76 99 11/27/20 15:35 76 125/72 11/27/20 15:33 98 H 99 11/27/20 15:28 76 99 11/27/20 15:23 99 H 97 11/27/20 15:20 92 H 136/91 11/27/20 15:18 76 98 11/27/20 15:13 73 98 11/27/20 15:08 83 98 11/27/20 15:05 77 141/82 H 11/27/20 15:03 79 99 11/27/20 14:58 87 97 11/27/20 14:53 80 99 11/27/20 14:50 86 18 148/68 H 11/27/20 14:48 99 H 100 11/27/20 14:43 80 99 11/27/20 14:38 80 99 11/27/20 14:36 36.8 C 82 18 152/65 H 11/27/20 14:33 96 H 98 11/27/20 14:28 77 98 11/27/20 14:23 89 98 11/27/20 14:20 93 H 133/72 11/27/20 14:18 86 99 11/27/20 14:13 85 98 11/27/20 14:08 98 H 99 11/27/20 14:05 87 139/78 11/27/20 14:03 87 100 11/27/20 13:58 100 H 99 11/27/20 13:53 101 H 98 11/27/20 13:51 86 18 131/74 11/27/20 13:48 71 97 11/27/20 13:43 69 98 11/27/20 13:38 73 97 11/27/20 13:36 84 138/71 11/27/20 13:33 73 98 11/27/20 13:28 92 H 99 11/27/20 13:23 75 98 11/27/20 13:21 73 127/66 11/27/20 13:18 74 98 11/27/20 13:13 70 98 11/27/20 13:08 79 98 11/27/20 13:06 83 130/76 11/27/20 13:03 98 H 98 11/27/20 12:58 77 100 11/27/20 12:53 74 100 11/27/20 12:50 76 18 119/62 11/27/20 12:48 72 100 11/27/20 12:43 80 100 11/27/20 12:38 81 97 11/27/20 12:36 75 119/60 11/27/20 12:33 78 99 11/27/20 12:28 36.8 C 89 18 100 11/27/20 12:23 76 100 11/27/20 12:21 83 126/62 11/27/20 12:18 78 99 11/27/20 12:13 70 98 11/27/20 12:08 79 100 11/27/20 12:06 69 118/61 11/27/20 12:03 71 99 11/27/20 11:58 85 100 11/27/20 11:53 83 18 100 11/27/20 11:52 100 H 92 11/27/20 11:51 79 136/74 11/27/20 11:48 72 99 11/27/20 11:43 73 99 11/27/20 11:38 73 99 11/27/20 11:35 93 H 126/72 11/27/20 11:33 72 98 11/27/20 11:28 72 98 11/27/20 11:23 73 99 11/27/20 11:20 82 135/73 11/27/20 11:18 72 99 11/27/20 11:13 72 98 11/27/20 11:08 80 99 0730/21 11:05 77 134/72 11/27/20 11:03 76 99 11/27/20 10:58 76 100 11/27/20 10:53 91 H 18 100 11/27/20 10:51 83 128/68 11/27/20 10:48 86 99 11/27/20 10:43 87 100 11/27/20 10:38 82 100 11/27/20 10:35 85 139/72 11/27/20 10:33 85 100 11/27/20 10:28 92 H 100 11/27/20 10:23 97 H 100 11/27/20 10:21 91 H 140/81 11/27/20 10:18 89 99 11/27/20 10:13 98 H 100 11/27/20 10:08 64 98 11/27/20 10:07 68 111/64 11/27/20 10:03 82 99 11/27/20 09:58 68 100 11/27/20 09:53 69 99 11/27/20 09:52 70 18 115/57 L 11/27/20 09:48 75 98 11/27/20 09:43 66 99 11/27/20 09:38 73 98 11/27/20 09:35 66 119/58 L 11/27/20 09:33 66 100 11/27/20 09:28 73 100 11/27/20 09:23 73 99
[2020-11-27] MEDS ORDERED: LIDOCAINE 1% LOCAL 20 ML VIAL ONE (22:30)
[2020-11-27] MEDS ORDERED: oxyCODONE/ACETAMINOPHEN 5mg/325mg TAB PO PRN (22:55)
[2020-11-27] MEDS ORDERED: bisacodyL 10 MG SUPP PR PRN (22:55)
[2020-11-27] MEDS ORDERED: DIPHTHERIA/TETANUS/PERTUSSIS 0.5 ML SYR/VIAL IM ONE (22:55)
[2020-11-27] MEDS ORDERED: MEASLES, MUMPS & RUBELLA VIRUS VIAL SQ ONE (22:55)
[2020-11-27] MEDS ORDERED: BENZOCAINE 20% AER SPR 82.5 GM CAN EXT PRN (22:55)
[2020-11-27] MEDS ORDERED: HYDROCORTISONE ACETATE 25 MG SUPP PR PRN (22:55)
[2020-11-27] MEDS: IBUPROFEN 600 MG TAB PO PRN (23:47)
[2020-11-27] MEDS: METHYLERGONOVINE MALEATE 0.2 MG TAB PO SCH (23:48)
[2020-11-27] MEDS: SUPERCREAM 0.870% 15 GM JAR EXT PRN (23:48)
--- NOTE | 2020-11-27 23:59 | Delivery Summary ---
DATE OF DELIVERY: 11/27/2020. TIME: 22:23 p.m. DETAILS OF DELIVERY: The patient was found to be fully dilated and desired to push. She pushed for about 1-1/2 hours after a protracted labor and the head was over the tight perineum and sinking back in to the pelvis, suggesting impending shoulder dystocia. The mother was exhausted, decision was made to open the right mediolateral episiotomy to aid for delivery of the head and shoulders. After it was opened, head was delivered and turtle sign was noted. The bed was lowered down and nursing team was noted of shoulder dystocia and with hyperflexion of the legs, Clara maneuver, posterior arm and shoulder ( which were right side) were delivered without difficulty and then anterior shoulder and arm came without difficulty. Baby was handed off to the mother where mouth and nose were suctioned. Baby had terminal meconium and covered with meconium. Cord was clamped x2 and cut and baby was handed to the pediatric tea. The cord blood was obtained and then vagina and perineum were checked for lacerations. There was a mediolateral episiotomy, which was opened earlier. Rest of the vagina was intact. It was repaired with 2-0 Vicryl in a running locked fashion bringing the vaginal mucosa together, bulbocavernosus muscles together and skin in a subcuticular fashion. Excellent hemostasis was achieved. Rest of the vagina and labia were intact and then placenta was found to be in the vagina, delivered spontaneous as intact and complete. Uterus was explored and found to be empty. Lower segment was cleared of all clots and debris. Fundus was firm. ESTIMATED BLOOD LOSS: 250 mL IV oxytocin was started. Mom and baby tolerated the procedure well. Baby was a viable male infant, Apgars 7/9, weight is 4180 gr. Sponge, lap, needle count was correct x 2. No complications happened other than mild shoulder dystocia. I was present during whole procedure. Job ID: [id number] [facility]
[2020-11-28] MEDS: IBUPROFEN 600 MG TAB PO PRN ×4 (04:52→21:35)
[2020-11-28] MEDS: METHYLERGONOVINE MALEATE 0.2 MG TAB PO SCH ×5 (04:53→20:25)
[2020-11-28 06:01] LABS: Hematocrit (blood only) 34.1 % (37-47); Hemoglobin 11.7 g/dL (12.0-16.0); Mean Corpuscular Hemoglobin 32.1 pg (25-34); Mean Corpuscular Hgb Conc 34.3 g/dL (32-36); Mean Corpuscular Volume 93.4 fL (80-100); Mean Platelet Volume 10.6 fL (7.4-10.4); Platelet Count 127 K/uL (130-400); RDW Coefficient of Variation 13.2 % (11.5-14.5); RDW Standard Deviation 45.9 fL (36.4-46.3); Red Blood Count 3.65 M/uL (4.2-5.4); White Blood Count 26.42 K/uL (4.8-10.8)
--- NOTE | 2020-11-28 07:32 | Obstetrical Progress Note ---
Date of Service November 28, 2020 Assessment & Plan Admission and Anticipated Discharge Date Admission Date: November 26, 2020 Subjective Patient is seen and examined. She feels well, no complaints. Ambulating without dizziness Voiding without difficulty Tolerating regular diet with out N&V Bleeding is minimal No fever/ chills/ CP/ SOB/ N&V/ Leg pain Breast feeding without problems Vital Signs Temp Pulse Pulse Resp BP BP Pulse Ox 11/28/20 05:00 36.9 C 86 18 126/77 11/28/20 02:00 37.3 C 94 H 18 126/78 11/28/20 00:52 107 H 132/82 11/28/20 00:50 18 11/28/20 00:22 107 H 141/79 H 11/27/20 23:51 104 H 158/80 H 11/27/20 23:50 36.7 C 18 11/27/20 23:36 104 H 145/64 H 11/27/20 23:21 105 H 139/61 11/27/20 23:20 18 11/27/20 23:05 100 H 138/63 11/27/20 22:50 36.3 C L 18 11/27/20 22:49 93 H 136/74 11/27/20 22:20 114 H 134/80 11/27/20 21:39 102 H 95 11/27/20 21:38 116 H 181/75 H 11/27/20 21:35 116 H 91 11/27/20 21:34 109 H 97 11/27/20 21:30 20 11/27/20 21:28 127 H 97 11/27/20 21:24 108 H 90 11/27/20 21:23 102 H 98 11/27/20 21:18 104 H 99 11/27/20 21:13 127 H 99 11/27/20 21:08 95 H 98 11/27/20 21:03 95 H 99 11/27/20 21:00 36.8 C 18 11/27/20 20:58 90 99 11/27/20 20:53 88 98 11/27/20 20:51 92 H 140/87 11/27/20 20:48 98 H 99 11/27/20 20:43 103 H 99 11/27/20 20:38 109 H 100 11/27/20 20:36 97 H 157/83 H 11/27/20 20:33 110 H 90 11/27/20 20:28 110 H 99 11/27/20 20:27 111 H 93 11/27/20 20:23 103 H 93 11/27/20 20:22 99 H 93 11/27/20 20:20 90 127/60 11/27/20 20:18 83 99 11/27/20 20:13 79 100 11/27/20 20:08 83 99 11/27/20 20:06 93 H 140/78 11/27/20 20:03 91 H 99 11/27/20 19:59 99 H 93 11/27/20 19:58 107 H 100 11/27/20 19:53 106 H 93 11/27/20 19:51 82 139/66 11/27/20 19:48 80 100 11/27/20 19:43 87 99 11/27/20 19:38 97 H 98 11/27/20 19:36 81 137/63 11/27/20 19:33 119 H 100 Lab Results 11/26/20 11/26/20 11/26/20 Range/Units 08:00 08:00 08:41 WBC 14.37 H (4.8-10.8) K/uL RBC 4.01 L (4.2-5.4) M/uL Hgb 12.9 (12.0-16.0) g/dL Hct 37.6 (37-47) % MCV 93.8 (80-100) fL MCH 32.2 (25-34) pg MCHC 34.3 (32-36) g/dL RDW Std Deviation 45.7 (36.4-46.3) fL RDW Coeff of [place] 13.3 (11.5-14.5) % Plt Count 141 (130-400) K/uL MPV 10.3 (7.4-10.4) fL COVID-19 Eval Order Covid19 [facility] SARS-CoV-2, RNA, NAAT NEGATIVE (NEGATIVE) 11/28/20 Range/Units 05:43 WBC 26.42 H (4.8-10.8) K/uL RBC 3.65 L (4.2-5.4) M/uL Hgb 11.7 L (12.0-16.0) g/dL Hct 34.1 L (37-47) % MCV 93.4 (80-100) fL MCH 32.1 (25-34) pg MCHC 34.3 (32-36) g/dL RDW Std Deviation 45.9 (36.4-46.3) fL RDW Coeff of [place] 13.2 (11.5-14.5) % Plt Count 127 L (130-400) K/uL MPV 10.6 H (7.4-10.4) fL COVID-19 Eval Order SARS-CoV-2, RNA, NAAT (NEGATIVE) PE: General: Alert, orientedx3, NAD Abd: soft, NT, fundus firm, below Umbilicus Perineum intact, Lochia rubra minimal Ext; NT, no edema AP: 30 yo s/p , ppd# 1 VSS Afebrile doing well CBC in am Continue routine care All questions were answered D/C home in am Breast Results & Data ([facility]) Vital Signs (Past 12 Hours) Vital Signs Temp Pulse Pulse Resp BP BP Pulse Ox 11/28/20 05:00 36.9 C 86 18 126/77 11/28/20 02:00 37.3 C 94 H 18 126/78 11/28/20 00:52 107 H 132/82 11/28/20 00:50 18 11/28/20 00:22 107 H 141/79 H 11/27/20 23:51 104 H 158/80 H 11/27/20 23:50 36.7 C 18 11/27/20 23:36 104 H 145/64 H 11/27/20 23:21 105 H 139/61 11/27/20 23:20 18 11/27/20 23:05 100 H 138/63 11/27/20 22:50 36.3 C L 18 11/27/20 22:49 93 H 136/74 11/27/20 22:20 114 H 134/80 11/27/20 21:39 102 H 95 11/27/20 21:38 116 H 181/75 H 11/27/20 21:35 116 H 91 11/27/20 21:34 109 H 97 11/27/20 21:30 20 11/27/20 21:28 127 H 97 11/27/20 21:24 108 H 90 11/27/20 21:23 102 H 98 07/30/21 21:18 104 H 99 11/27/20 21:13 127 H 99 11/27/20 21:08 95 H 98 11/27/20 21:03 95 H 99 11/27/20 21:00 36.8 C 18 11/27/20 20:58 90 99 11/27/20 20:53 88 98 11/27/20 20:51 92 H 140/87 11/27/20 20:48 98 H 99 11/27/20 20:43 103 H 99 11/27/20 20:38 109 H 100 11/27/20 20:36 97 H 157/83 H 11/27/20 20:33 110 H 90 11/27/20 20:28 110 H 99 11/27/20 20:27 111 H 93 11/27/20 20:23 103 H 93 11/27/20 20:22 99 H 93 11/27/20 20:20 90 127/60 11/27/20 20:18 83 99 11/27/20 20:13 79 100 11/27/20 20:08 83 99 11/27/20 20:06 93 H 140/78 11/27/20 20:03 91 H 99 11/27/20 19:59 99 H 93 11/27/20 19:58 107 H 100 11/27/20 19:53 106 H 93 11/27/20 19:51 82 139/66 11/27/20 19:48 80 100 11/27/20 19:43 87 99 11/27/20 19:38 97 H 98 11/27/20 19:36 81 137/63 11/27/20 19:33 119 H 100
[2020-11-28] MEDS: DOCUSATE SODIUM 100 MG CAP PO SCH ×2 (08:45→20:25)
[2020-11-28] MEDS: PRENATAL VITAMIN 1 TAB PO SCH (08:45)
[2020-11-28] MEDS: FERROUS SULFATE 325 MG TAB PO SCH (08:45)
--- NOTE | 2020-11-28 09:55 | Anesthesia Procedure Note ---
Date of Service November 28, 2020 Anesthesia Post Epidural Note Vital Signs Vital Signs: Temp Pulse Resp BP Pulse Ox 36.5 C 89 16 120/79 98 11/28/20 08:20 11/28/20 08:20 11/28/20 08:20 11/28/20 08:20 11/28/20 08:20 Pain Intensity Left Hip: Pain Intensity: 4 Bilateral Episiotomy/Laceration: Pain Intensity: 2 Notes Mental Status: alert / awake / arousable Nausea / Vomiting: adequately controlled Pain: adequately controlled Airway Patency, RR, SpO2: stable & adequate BP & HR: stable & adequate Hydration State: stable & adequate Neuraxial Anesthesia: was administered and sensory block is resolving Anesthetic Complications: no major complications apparent Epidural: Removed without complications and With tip intact
[2020-11-28] MEDS: SUPERCREAM 0.870% 15 GM JAR EXT PRN (10:05)
[2020-11-28] MEDS: ACETAMINOPHEN 325 MG TAB PO PRN ×2 (12:44→18:18)
[2020-11-28] MEDS ORDERED: bisacodyL 5 MG TABEC PO SCH (20:00)
[2020-11-29] MEDS: IBUPROFEN 600 MG TAB PO PRN (05:16)
[2020-11-29 05:41] LABS: Basophils # (auto) 0.02 K/uL (0-0.2); Basophils % (auto) 0.1 %; Eosinophils # (auto) 0.16 K/uL (0-0.5); Hematocrit (blood only) 29.9 % (37-47); Hemoglobin 9.6 g/dL (12.0-16.0); Immature Granulocytes # (auto) 0.07 K/uL (0.00-0.02); Immature Granulocytes % (auto) 0.4 %; Lymphocytes # (auto) 1.96 K/uL (1.2-3.4); Lymphocytes % (auto) 11.8 %; Mean Corpuscular Hgb Conc 32.1 g/dL (32-36); Mean Corpuscular Volume 96.5 fL (80-100); Mean Platelet Volume 10.3 fL (7.4-10.4); Monocytes % (auto) 7.2 %; Neutrophils # (auto) 13.17 K/uL (1.4-6.5); Neutrophils % (auto) 79.5 %; Platelet Count 102 K/uL (130-400); RDW Coefficient of Variation 13.8 % (11.5-14.5); RDW Standard Deviation 48.5 fL (36.4-46.3); White Blood Count 16.58 K/uL (4.8-10.8)
[2020-11-29] MEDS: DOCUSATE SODIUM 100 MG CAP PO SCH (07:34)
[2020-11-29] MEDS: FERROUS SULFATE 325 MG TAB PO SCH (07:34)
[2020-11-29] MEDS: PRENATAL VITAMIN 1 TAB PO SCH (07:34)
--- NOTE | 2020-11-29 10:33 | Obstetrical Progress Note ---
Date of Service November 29, 2020 Physical Exam Constitutional WD/WN, vitals as above Gastrointestinal (Abdomen) Abdomen soft and non-tender fundus firm no edema neg Noreen's for d/c today Results & Data ([facility]) Vital Signs (Past 12 Hours) Vital Signs Temp Pulse Resp BP Pulse Ox 11/29/20 07:50 36.5 C 71 16 128/82 100 11/29/20 00:45 36.6 C 81 18 114/75 Laboratory Results Laboratory Results - last 72 hr 11/28/20 11/29/20 05:43 05:17 WBC 26.42 H 16.58 H RBC 3.65 L 3.10 L Hgb 11.7 L 9.6 L Hct 34.1 L 29.9 L MCV 93.4 96.5 MCH 32.1 31.0 MCHC 34.3 32.1 RDW Std Deviation 45.9 48.5 H RDW Coeff of [place] 13.2 13.8 Plt Count 127 L 102 L MPV 10.6 H 10.3 Immature Gran % (Auto) 0.4 Neut % (Auto) 79.5 Lymph % (Auto) 11.8 [place] % (Auto) 7.2 Eos % (Auto) 1.0 Baso % (Auto) 0.1 Neut # (Auto) 13.17 H Lymph # (Auto) 1.96 [place] # (Auto) 1.20 H Eos # (Auto) 0.16 Baso # (Auto) 0.02 Immature Gran # (Auto) 0.07 H
== END 2020-11-29 12:15 | disposition home or self-care (01) | DRG 807 ==
LOC: 4S1 07:21 → 4S2 11-28 01:30

== ENCOUNTER 2023-03-20 15:34 | Inpatient (IN) ==
[2023-03-20] MEDS ORDERED: LACTATED RINGER'S 1,000 ML IV PRN (16:48)
[2023-03-20] MEDS ORDERED: ACETAMINOPHEN 650 MG SUPP PR PRN (16:55)
[2023-03-20] MEDS ORDERED: ONDANSETRON INJ 2 MG/ML 2 ML VIAL IV PRN ×2 (16:55→17:32)
[2023-03-20] MEDS ORDERED: BUTORPHANOL TARTRATE 1 MG/ML VIAL IV PRN (16:56)
[2023-03-20] MEDS ORDERED: ePHEDrine sulfate 50 MG/ML AMP ONE (17:07)
[2023-03-20] MEDS ORDERED: fentANYL 2 MCG/ML BUPIVacaine 0.125%-NSS 100ML BAG ONE (17:07)
[2023-03-20] MEDS ORDERED: fentaNYL citrate PF 100 MCG/2 ML VIAL ONE (17:07)
--- NOTE | 2023-03-20 17:07 | Obstetrical Progress Note ---
Date of Service March 20, 2023 Assessment & Plan (1) demise > 22 weeks, delivered, current hospitalization: Admission and Anticipated Discharge Date Admission Date: March 20, 2023 Results & Data Vital Signs (Past 12 Hours) Vital Signs Temp Pulse Resp BP 03/20/23 16:13 88 117/56 L 03/20/23 15:48 37.4 C 18
[2023-03-20] MEDS ORDERED: SODIUM CHLORIDE 0.9% PF INJ 10 ML VIAL ONE (17:08)
[2023-03-20] MEDS ORDERED: LIDOCAINE 2%/EPINEPHRINE 1:200,000 20 ML PF ONE (17:08)
[2023-03-20] MEDS ORDERED: BUPIVACAINE 0.25% PF 30 ML VIAL ONE (17:08)
--- NOTE | 2023-03-20 17:09 | Obstetrical Progress Note ---
Date of Service March 20, 2023 Assessment & Plan (1) demise > 22 weeks, delivered, current hospitalization: Plan demise at 15+ weeks sono done at [facility] office today VE; /post pt admitted for vag delivery pt calvin every 2-4 mins Epidural ordered Cytotec Q4 anticipate VD Admission and Anticipated Discharge Date Admission Date: March 20, 2023 Results & Data Vital Signs (Past 12 Hours) Vital Signs Temp Pulse Resp BP 03/20/23 16:13 88 117/56 L 03/20/23 15:48 37.4 C 18
[2023-03-20 17:22] LABS: Hematocrit (blood only) 38.5 % (37.0-47.0); Hemoglobin 13.5 g/dl (12.0-16.0); Mean Corpuscular Hemoglobin 31.6 pg (25.0-34.0); Mean Corpuscular Hgb Conc 35.1 g/dL (32.0-36.0); Mean Corpuscular Volume 90.2 fL (80.0-100.0); Mean Platelet Volume 9.6 fL (9.4-12.4); Platelet Count 159 K/uL (130-400); RDW Coefficient of Variation 12.4 % (11.5-14.5); RDW Standard Deviation 40.9 fL (36.4-46.3); Red Blood Count 4.27 M/uL (4.20-5.40); White Blood Count 25.03 K/ul (4.8-10.8)
[2023-03-20] MEDS ORDERED: MIDAZOLAM HCL 1 MG/ML 2ML VIAL ONE (17:26)
[2023-03-20] MEDS ORDERED: NALOXONE HCL 0.4 MG/1 ML VIAL/CARP IV PRN (17:32)
[2023-03-20] MEDS ORDERED: diphenhydrAMINE 50 MG/ML VIAL IV PRN (17:32)
[2023-03-20] MEDS ORDERED: ROPIVACAINE 0.5% PF 5 MG/ML 20 ML VIAL EPI PRN (17:32)
[2023-03-20] MEDS ORDERED: LIDOCAINE 2%/EPINEPHRINE 1:200,000 20 ML PF EPI STA (17:32)
[2023-03-20] MEDS ORDERED: fentANYL 2 MCG/ML BUPIVacaine 0.125%-NSS 100ML BAG EPI PRN (17:32)
[2023-03-20] MEDS ORDERED: fentaNYL citrate PF 100 MCG/2 ML VIAL EPI PRN (17:32)
[2023-03-20] MEDS ORDERED: NALOXONE HCL 1 MG in SODIUM CHLORIDE 0.9% 1,000 ML IV PRN (17:32)
[2023-03-20] MEDS ORDERED: BUPIVACAINE 0.25% PF 30 ML VIAL EPI STA (17:32)
[2023-03-20] MEDS ORDERED: ePHEDrine sulfate 50 MG/ML AMP IV PRN (17:32)
[2023-03-20] MEDS ORDERED: NALBUPHINE HCL 5 MG in SYRINGE 0 ML IV PRN (17:32)
[2023-03-20] MEDS ORDERED: SODIUM CHLORIDE 0.9% PF INJ 10 ML VIAL EPI STA (17:32)
[2023-03-20] MEDS ORDERED: PROMETHAZINE HCL 6.25 MG in SODIUM CHLORIDE 0.9% 50 ML IV PRN (17:32)
[2023-03-20] MEDS ORDERED: SODIUM CHLORIDE 0.9% PF INJ 10 ML VIAL EPI PRN (17:32)
[2023-03-20] MEDS ORDERED: LIDOCAINE 2% MPF LOCAL 5 ML VIAL EPI PRN (17:32)
[2023-03-20] MEDS ORDERED: BUPIVACAINE 0.25% PF 30 ML VIAL EPI PRN (17:32)
[2023-03-20] MEDS ORDERED: fentaNYL citrate PF 100 MCG/2 ML VIAL EPI STA (17:32)
--- NOTE | 2023-03-20 17:32 | Anesthesiology Consultation ---
Date of Service March 20, 2023 Assessment & Plan Chart Review Chart Review: Patient NOT seen in Pre Admission Testing and Acceptable Risk for Labor Epidural Consults Requested none ASA ASA2 Proposed Anesthesia Anesthesia Type: Labor Epidural Risk / Benefits Reviewed With: PT / POA / Parent / Guardian, Accepts Plan and Informed Consent Obtained History Height/Weight Height: 5 ft 3 in Weight: 67 kg Allergies Allergy/AdvReac Type Severity Reaction Status Date / Time No Known Allergies Allergy Verified 03/20/23 16:29 Medications Home Medications Medication Instructions Recorded Confirmed Last Taken cetirizine 10 mg tablet (Zyrtec) 10 mg PO DAILY 11/26/20 11/26/20 11/25/20 21:00 prenat.vits,aurelio,[id number] 1 tab PO DAILY 11/26/20 03/20/23 03/20/23 ibuprofen 600 mg tablet 600 mg PO Q4H PRN fever or pain 11/29/20 Unknown #30 tabs Active Medications Generic Name Dose Route Start Last Admin Trade Name Freq PRN Reason Stop Dose Admin Lactated Ringer's 1,000 mls @ 125 mls/hr 03/20/23 16:48 03/20/23 17:09 Lr IV 03/22/23 16:47 125 mls/hr .Q8H PRN Infusion L&D Protocol Protocol Past Medical History Medical History No known health problems Exercise / Class Metabolic Activity II 4-5 Yardwork/Stairs/Walk up hill Past Surgical History Surgical History H/O wisdom tooth extraction Past Anesthesia History No Hx of Anesthesia Complications and No Family Hx of Anesthesia Complications History of PONV No Hx of PONV and No Hx of Motion Sickness Social History Smoking Status: Never smoker Hx Alcohol Use: No Hx Substance Use: No Physical Exam Vital Signs Last Vital Signs Temp 37.4 C 03/20/23 15:48 Pulse 88 03/20/23 16:13 Resp 18 03/20/23 15:48 BP 117/56 L 03/20/23 16:13 ENMT Mouth: no dentition abnormality Thyromental Distance: > or= 3.5 Finger Breadths Mallampati Class: II Neck normal visual inspection Respiratory normal respiratory effort Auscultation: lungs clear to auscultation bilaterally Cardiovascular Rate/Rhythm: regular rate and regular rhythm Psychiatric Orientation: alert Testing Laboratory Results 03/20/23 17:10
[2023-03-20 17:54] LABS: Partial Thromboplastin Time 27.1 Seconds (21.0-31.0); Prothrombin Time 11.3 Seconds (9.0-12.0)
--- NOTE | 2023-03-20 18:26 | Obstetrical Progress Note ---
Date of Service March 20, 2023 Assessment & Plan (1) demise > 22 weeks, delivered, current hospitalization: Plan: Delivered demise. placenta delivered spontaneously as well No laceration or tears Cytotec 1000mg given rectally Admission and Anticipated Discharge Date Admission Date: March 20, 2023 Results & Data Vital Signs (Past 12 Hours) Vital Signs Temp Pulse Resp BP Pulse Ox 03/20/23 18:23 96 H 100 03/20/23 18:22 96 H 120/56 L 03/20/23 18:18 97 H 100 03/20/23 18:16 89 118/62 03/20/23 18:13 100 03/20/23 18:13 100 H 03/20/23 18:13 103 H 122/61 03/20/23 18:08 93 H 100 03/20/23 18:06 105 H 141/63 H 03/20/23 18:04 96 H 163/63 H 03/20/23 18:03 103 H 100 03/20/23 18:02 100 H 124/59 L 03/20/23 18:00 96 H 120/58 L 03/20/23 17:58 100 03/20/23 17:58 91 H 03/20/23 17:58 81 121/57 L 03/20/23 17:56 100 H 116/58 L 03/20/23 17:54 98 H 120/59 L 03/20/23 17:53 94 H 100 03/20/23 17:52 93 H 115/59 L 03/20/23 17:50 83 122/60 03/20/23 17:48 95 H 120/59 L 100 03/20/23 17:46 93 H 120/59 L 03/20/23 17:44 84 123/58 L 03/20/23 17:43 98 H 100 03/20/23 17:39 101 H 94 03/20/23 17:38 101 H 95 03/20/23 17:35 94 H 136/62 03/20/23 17:33 98 H 100 03/20/23 16:13 88 117/56 L 03/20/23 15:48 37.4 C 18
[2023-03-20] MEDS ORDERED: BENZOCAINE 20% SPRY 85 APPLN/85 GM CAN EXT PRN (18:34)
[2023-03-20] MEDS ORDERED: IBUPROFEN 600 MG TAB PO PRN (18:34)
[2023-03-20] MEDS ORDERED: bisacodyL 10 MG SUPP PR PRN (18:34)
[2023-03-20] MEDS ORDERED: DIPHTHERIA/TETANUS/PERTUSSIS Vaccine (Tdap, Age 7+yrs) 0.5mL SYR/VL IM ONE (18:34)
[2023-03-20] MEDS ORDERED: HYDROCORTISONE ACETATE 25 MG SUPP PR PRN (18:34)
[2023-03-20] MEDS ORDERED: miSOPROStoL 200 MCG TAB PR ONE (18:34)
[2023-03-20] MEDS ORDERED: ACETAMINOPHEN 325 MG TAB PO PRN (18:34)
--- NOTE | 2023-03-20 18:34 | Delivery Summary ---
Vaginal Delivery Summary Date of Service March 20, 2023 Vaginal Delivery Summary DELIVERY NOTE Patient delivered a nonviable fetus. it was delivered and given to mother. Cord is cut and placenta spontaneously delivered Placenta is in pieces Inspection of the perineum showed no laceration or tears. Estimated blood loss is 400 cc per Rectal Cytotec is given to control bleeding pt stable in in the recovery
[2023-03-20] MEDS ORDERED: miSOPROStoL 200 MCG TAB ONE (18:41)
[2023-03-20] MEDS ORDERED: miSOPROStoL 200 MCG TAB PV SCH (20:00)
[2023-03-20 20:14] LABS: Estimated Average Glucose 100 mg/dl; Hemoglobin A1C 5.1 % (4.5-5.6)
--- NOTE | 2023-03-20 20:15 | Anesthesia Procedure Note ---
Date of Service March 20, 2023 Anesthesia Post Epidural Note Vital Signs Vital Signs: Temp Pulse Resp BP Pulse Ox 36.8 C 108 H 18 122/61 100 03/20/23 19:22 03/20/23 20:07 03/20/23 19:51 03/20/23 20:07 03/20/23 18:28 Notes Mental Status: alert / awake / arousable Nausea / Vomiting: adequately controlled Pain: adequately controlled Airway Patency, RR, SpO2: stable & adequate BP & HR: stable & adequate Hydration State: stable & adequate Neuraxial Anesthesia: was administered and sensory block is resolving Anesthetic Complications: no major complications apparent and Pt Satisfied with anesthetic care Epidural: Removed without complications and With tip intact
[2023-03-20] MEDS ORDERED: DOCUSATE SODIUM 100 MG CAP PO SCH (21:00)
[2023-03-20 22:30] LABS: Amphetamines+Metham, Urine Neg (Neg); Barbiturates, Urine Neg (Neg); Benzodiazepine, Urine Pos (Neg); Cocaine, Urine Neg (Neg); MDMA (Ecstacy), Urine Neg (Neg); Marijuana, Urine Neg (Neg); Methadone, Urine Neg (Neg); Opiate, Urine Neg (Neg); Phencyclidine, Urine Neg (Neg)
--- OUTSIDE RECORDS SUMMARY | 2023-03-20 23:42 | External Medical Summary ---
Author Name Unknown Address Unknown Organization [id number]:[facility] [place] [facility] [address] [place] [address] Laboratory Report Ordering Provider Test Date Status CHRISTINESAW 01/31/2023 14:33:28 Final Observation Date Value Abnormality Reference (Units ) Status Chlamydia trachomatis rRNA [Presence] in Specimen by MANFRED with probe detection 01/31/2023 14:33:28 Negative Negative Final No Chlamydia trachomatis det ected by financial processing clerk-mediated nucleic acid amplification. Neisseria gonorrhoeae rRNA [ Presence] in Specimen by MANFRED with probe detection 01/31/2023 14:33:28 Negative Negative Final No Neisseria gonorrhoeae det ected by financial processing clerk-mediated nucleic acid amplification. Performing Location [facility] [place] [address] [place] [address]
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
--- OUTSIDE RECORDS SUMMARY | 2023-03-20 23:42 | External Medical Summary | Summary of Care ---
Author Name Unknown Organization [facility] Address [address] [place] [address] Phone [phone] Care Team Providers Care Credit Analysis Manager Name Role Phone SawMayecourtney Amesceferino Primary Care Provider Reason for Visit * Reason Onset Date Comments Order Request 01/06/2023 Dating US Encounter Details Date Type Department Care Team Description 01/06/2023 Telephone Gynecology/Obstetrics [facility] [address] [place] [address] Jena Jiang CRNP [address] [place] [address] Order Request (Dating US) Allergies No known active allergiesdocumented as of this encounter (statuses as of 01/06/2023) Medications Medication Sig Dispensed Refills Start Date End Date Status cetirizine (ZYRTEC) 10 MG Tablet Take 10 mg by mouth. 1 tab twice daily 0 Active [place]-3 Fatty Acids (FISH OIL) 1000 MG Capsule Take 1 Capsule by mouth in the morning. 0 Active Womens Multi Oral Capsule Take by mouth . 0 Active guaiFENesin ER 600 MG Oral Tablet Extended Release 12 Hour (Mucinex)Indications :Acute maxillary sinusitis, recurrence not specified Take 1 Tablet by mouth 2 times a day as needed for Congestion. Take with plenty of water. Do not cut, crush or chew 40 Tablet 2 09/13/2022 Active Vitamin B Complex Oral Tablet Take 1 Tablet by mouth in the morning. 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 documented as of this encounter (statuses as of 01/06/2023) Resolved Problems Problem Noted Date Resolved Date Supervision of normal first 04/16/2020 01/11/2021 Viral URI with cough 06/29/2016 05/17/2017 Viral pharyngitis 06/29/2016 05/17/2017 Chronic rhinitis 06/29/2016 02/17/2017 Migraine 04/12/2022 documented as of this encounter (statuses as of 01/06/2023) Immunizations Name Administration Dates Next Due COVID-19 mRNA, LNP-s, No Pre serve, 2-Dose Series (Moderna) 03/10/2021,02/10/2021 TDAP (age 10 and older)(Boostrix) 09/01/2020,09/26/2024 documented as of this encounter Social History Tobacco Use Types Packs/Day Years Used Date Smoking Tobacco: Never Smokeless Tobacco: Never Comments:no passive smoke Alcohol Use Standard Drinks/Week Comments Yes 0 (1 standard drink = 0.6 oz pur e alcohol) Rare Food Insecurity Answer Date Recorded Within the past 12 months, y ou worried that your food would run out before you got money to buy more. Never true 07/09/2019 Within the past 12 months, t he food you bought just didn't last and you didn't have money to get more. Never true 07/09/2019 Sex Assigned at Date Recorded Not on file Job Start Date Occupation Industry Not on file Not on file Not on file documented as of this encounter Miscellaneous Notes * Telephone Encounter - KEO Powell - 01/06/2023 10:21 AM EDT Order linked * Telephone Encounter - KEO Powell - 01/06/2023 9:17 AM EDT Dating US scheduled prior to NOB; Please place order and send back to me documented in this encounter Plan of Treatment Upcoming Encounters Date Type Specialty Care Team Description 01/26/2023 Nurse Only Gynecology Obstetrics Gw, Nurse Motorcycle Delivery Driver New [address] [place] [address] 01/31/2023 Imaging Radiology 01/31/2023 Office Visit Gynecology Obstetrics Jena Jiang CRNP [address] [place] [address] 02/20/2023 Office Visit Gynecology Obstetrics Judith Thomas PA-C [address] [place] [address] 05/11/2023 Office Visit Family Medicine Dagoberto Spring DO [address] [place] [address] Scheduled Orders Name Type Priority Associated Diagnoses Orde r Schedule US PELVIS TRANS-VAGINAL OB Medical Imaging Routine Early stage of Expected: 01/06/2023 (Approximate), Expires: 02/06/2024 Health Maintenance Due Date Last Done Comments Hepatitis B (1 of 3 - 3-dose series) 1989 GARDASIL-HPV IMMUNIZATION SERIES (2 - 3-dose series) 10/24/2014 09/26/2014 (Declined) COVID-19 Vaccine (3 - Moderna series) 05/05/2021 03/10/2021, 02/10/2021 PAP SMEAR-ANNUAL AGES 18-100 01/11/2022 01/11/2021, 01/02/2018, 01/02/2018, Additional history exists Influenza Vaccine (FLU shot) (#1) 2022 02/07/2020 Depression Screening 04/12/2023 04/12/2022 DTaP,Tdap,and Td Vaccines (3 - Td or Tdap) 09/01/2030 09/01/2020, 09/26/2014 Hepatitis C Screening Discontinued MENINGOCOCCAL (MENACTRA/MENVEO) Aged Out No longer eligible based on patient's age to complete this topic Pneumococcal Vaccine: Pediatrics (0 to 5 Years) and At-Risk Patients (6 to 64 Years) Aged Out No longer eligible based on patient's age to complete this topic documented as of this encounter Medical Devices Not on filedocumented as of this encounter Visit Diagnoses Diagnosis Early stage of - Primary documented in this encounter Care Teams Credit Analysis Manager Relationship Specialty Start Date End Date Dagoberto Spring DO [address] [place] [address] PCP - General Family Medicine 04/12/22 documented as of this encounter
--- OUTSIDE RECORDS SUMMARY | 2023-03-20 23:42 | External Medical Summary | Summary of Care ---
Author Name Unknown Organization [facility] Address [address] [facility] [place] [address] Phone [phone] Care Team Providers Care Supply Chain Logistics Manager Name Role Phone Saw Dagoberto Amesceferino Primary Care Provider Reason for Visit * Reason Comments Return Visit Encounter Details Date Type Department Care Team (Late st Contact Info) Description 02/28/2023 9:15 AM EDT Office Visit Gynecology/[facility]st[facility] s [facility] [address] [place] [address] Jena Jiang CRNP [address] [place] [address] Encounter for supervision of other normal in first trimester* Allergies No known active allergiesdocumented as of this encounter (statuses as of 02/28/2023) Medications Medication Sig Dispensed Refills Start Date End Date Status cetirizine (ZYRTEC) 10 MG Tablet Take 1 Tablet by mouth. 1 tab twice daily 0 Active [place]-3 Fatty Acids (FISH OIL) 1000 MG Capsule Take 1 Capsule by mouth in the morning. 0 Active /Iron Oral Tablet Take by mouth. 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 Estimated Date of Delivery Comme nts Yes 09/11/2023 Based on last me nstrual period of 12/05/2022 (Exact Date) documented as of this encounter (statuses as of 02/28/2023) Resolved Problems Problem Noted Date Diagnosed Date Resolved Date Supervision of normal first 04/16/2020 01/11/2021 Viral URI with cough 06/29/2016 018 Viral pharyngitis 06/29/2016 05/17/2017 Chronic rhinitis 06/29/2016 02/17/2017 Migraine 04/12/2022 documented as of this encounter (statuses as of 02/28/2023) Immunizations Name Administration Dates Next Due COVID-19 [...] = 0.6 oz pur e alcohol) Rare PHQ-2 Answer Date Recorded PHQ Adult Total Score 0 04/12/2022 Hunger Vital Sign Answer Date Recorded Within the past 12 months, y ou worried that your food would run out before you got the money to buy more. Never true 01/31/20 23 Within the past 12 months, t he food you bought just didn't last and you didn't have money to get more. Never true 01/30/2023 [place]man Depression Scale Answer Date Recorded [place] Depression Scale Total 7 01/31/2023 The thought of harming myself has occurred to me . Never 01/31/2023 Estimated Date of Delivery Comme nts Yes 09/11/2023 Based on last me nstrual period of 12/05/2022 (Exact Date) Sex and Gender Information Value Date Recorded Sex Assigned at Female 01/30/2023 1:37 PM EDT Gender Identity Female 01/30/2023 1:37 PM EDT Sexual Orientation Straight 07/09/2019 8: 58 AM EDT Job Start Date Occupation Industry Not on file Not on file Not on file documented as of this encounter Last Filed Vital Signs Vital Sign Reading Time Taken Comments Blood Pressure 100/62 02/28/2023 9:14 AM EDT Pulse - - Temperature - - Respiratory Rate - - Oxygen Saturation - - Inhaled Oxygen Concentration - - Weight 68.5 kg (151 lb) 02/28/2023 9:14 AM EDT Height 160 cm (5' 3") 02/28/2023 9:14 AM EDT Body Mass Index 26.75 02/28/2023 9:14 AM EDT documented in this encounter Progress Notes * Jena Jiang CRNP - 02/28/2023 9:26 AM EDT 12w1d Having vaginal itching and discharge. Feels like a yeast infection. Suggested Monistat 7, call if no relief. No other concerns. No n/v or bleeding. Desires Qnatal, order printed for [employer] lab. SHIMA Davis documented in this encounter Nursing Notes * Lili Olson LPN - 02/28/2023 9:16 AM EDT 12w1d Itching, yellow discharge. documented in this encounter Plan of Treatment Upcoming Encounters Date Type Department Care Team (Late st Contact Info) Description 03/28/2023 8:15 AM EST Office Visit Gynecology/Obstetrics [facility] [address] [place] [address] Jena Jiang CRNP [address] [place] [address] 05/11/2023 10:20 AM EST Office Visit Family Practice [facility] [address] [place] [address] Dagoberto Spring DO [address] [place] [address] Scheduled Orders Name Type Priority Associated Diagnoses Orde r Schedule QNATAL ADVANCED (QUEST) Lab Routine Encounter for supervision of other normal in first trimester Ordered: 02/28/2023 Health Maintenance Due Date Last Done Comments Hepatitis B (1 of 3 - 3-dose series) 1989 GARDASIL-HPV IMMUNIZATION SERIES (2 - 3-dose series) 10/24/2014 09/26/2014 (Declined) PAP SMEAR-ANNUAL AGES 18-100 01/11/2022, 01/02/2018, 01/02/2018, Additional history exists COVID-19 Vaccine (3 - 2022-24 season) 2022 03/10/2021, 02/10/2021 Depression Screening 04/12/2023 04/12/2022 DTaP,Tdap,and Td Vaccines (3 - Td or Tdap) 09/01/2030 09/01/2020, 09/26/2014 Influenza Vaccine (FLU shot) Completed 01/31/2023, 02/07/2020 MENINGOCOCCAL (MENACTRA/MENVEO) Aged Out No longer eligible based on patient's age to complete this topic Pneumococcal Vaccine: Pediatrics (0 to 5 Years) and At-Risk Patients (6 to 64 Years) Aged Out No longer eligible based on patient's age to complete this topic documented as of this encounter Medical Devices Not on filedocumented as of this encounter Visit Diagnoses Diagnosis Encounter for supervision of other normal in first trimester- Primary documented in this encounter Care Teams Supply Chain Logistics Manager Relationship Specialty Start Date End Date Dagoberto Spring DO [address] [place] [address] PCP - General Family Medicine 04/12/22 documented as of this encounter
--- OUTSIDE RECORDS SUMMARY | 2023-03-20 23:42 | External Medical Summary | Summary of Care ---
Author Name Unknown Organization [facility] Address [address] [facility] [address] Phone [phone] Care Team Providers Care Networking Technology Instructor Name Role Phone SawMayecourtney Amesceferino Primary Care Provider Encounter Details Date Type Department Care Team (Late st Contact Info) Description 03/20/2023 Telephone Gynecology/Obstetrics [facility] [address] [place] [address] James Chandler MD [address] [place] [address] Allergies No known active allergiesdocumented as of this encounter (statuses as of 03/20/2023) Medications Medication Sig Dispensed Refills Start Date End Date Status cetirizine (ZYRTEC) 10 MG Tablet Take 1 Tablet by mouth. 1 tab twice daily 0 Active [place]-3 Fatty Acids (FISH OIL) 1000 MG Capsule Take 1 Capsule by mouth in the morning. 0 Active /Iron Oral Tablet Take by mouth. 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 Never true 01/30/2023 [place] Depression Scale Answer Date Recorded [place] Depression Scale Total 7 01/31/2023 The thought [...] encounter Miscellaneous Notes * Telephone Encounter - Marietta Salcido LPN - 03/20/2023 8:[address] Chandler said it is safe to monitor, if fever is persistent and not reduced with Tylenol or greater than 104.0 then she should see urgent care or ER. Comfort measures for round ligament pain. Patient agreeable to monitor and will let us know if anything changes. * Telephone Encounter - Marietta Salcido LPN - 03/20/2023 8:09 AM EST Pt is currently 15w0d with an Estimated Date of Delivery: 09/11/23 - Patient called with what she thought was round ligament pain/cramping. But then yesterday she started having body aches and fever 100.5. She did take Tylenol last night 1000 mgs. Temp this am 99.8. She states she is drinking plenty of fluids. Denies any vaginal bleeding. Will review with Dr. Chandler, patient requested an appointment but we do not have any openings in theoffice today. Her next scheduled appt is 03/28 with Jena documented in this encounter Plan of Treatment Upcoming Encounters Date Type Department Care Team (Late st Contact Info) Description 03/28/2023 8:15 AM EST Office Visit Gynecology/Obstetrics [facility] [address] [place] [address] Jena Jiang CRNP [address] [place] [address] 05/11/2023 10:20 AM EST Office Visit Family Practice [facility] [address] [place] [address] Dagoberto Spring DO [address] [place] [address] Health Maintenance Due Date Last Done Comments [...] Not on filedocumented as of this encounter Care Teams Networking Technology Instructor Relationship Specialty Start Date End Date Dagoberto Spring DO [address] [place] [address] PCP - General Family Medicine 04/12/22 documented as of this encounter
--- OUTSIDE RECORDS SUMMARY | 2023-03-20 23:42 | External Medical Summary | Summary of Care ---
Author Name Unknown Organization [facility] Address [address] [place] [address] Phone [phone] Care Team Providers Care Pipe Tester Name Role Phone Dagoberto Spring Primary Care Provider Reason for Visit * Reason Comments Acne Pt here regarding ac ne. Uses OTC products to treat. Encounter Details Date Type Department Care Team Description 11/25/2022 Office Visit Dermatology [facility] [place] [address] [facility] [address] [place] [address] Betsy Silvestre MD [address] [place] [address] Acne vulgaris*; Acne scarring Allergies No known active allergiesdocumented as of this encounter (statuses as of 11/26/2022) Medications Medication Sig Dispensed Refills Start Date End Date Status cetirizine (ZYRTEC) 10 MG Tablet Take 10 mg by mouth. 1 tab twice daily 0 Active [place]-3 Fatty Acids (FISH OIL) 1000 MG Capsule Take 1 Capsule by mouth in the morning. 0 Active Womens Multi Oral Capsule Take by mouth . 0 Active guaiFENesin ER 600 MG Oral Tablet Extended Release 12 Hour (Mucinex)Indicat ions:Acute maxillary sinusitis, recurrence not specified Take 1 Tablet by mouth 2 times a day as needed for Congestion. Take with plenty of water. Do not cut, crush or chew 40 Tablet 2 09/13/2022 Active Vitamin B Complex Oral Tablet Take 1 Tablet by mouth in the morning. 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 documented as of this encounter (statuses as of 11/26/2022) Resolved Problems Problem Noted Date Resolved Date Supervision of normal first 04/16/2020 01/11/2021 Viral URI with cough 06/29/2016 05/17/2017 Viral pharyngitis 06/29/2016 05/17/2017 Chronic rhinitis 06/29/2016 02/17/2017 Migraine 04/12/2022 documented as of this encounter (statuses as of 11/26/2022) Immunizations Name Administration Dates Next Due COVID-19 [...] on file documented as of this encounter Progress Notes * Betsy Silvestre MD - 11/25/2022 9:55 AM EDT SUBJECTIVE: History of Present Illness: Cece Gary is a 32 year old female seen today for follow up of acne. Date Last Appointment: 06/30/2021 (in office), Visit date not found (telemedicine) Pt using mild soaps, azelaic acid susp; before , hx other topicals and spironolactone, PDL. 2 y/o son, pt wants to get again soon REVIEW OF SYSTEMS: SKIN: No other new or changing moles. HEME/LYMPH: No new or enlarging lumps or bumps. MEDICA TIONS: Current Outpatient Medications Medication Sig Dispense Refill cetirizine (ZYRTEC) 10 MG Tablet Take 10 mg by mouth. 1 tab twice daily [place]-3 Fatty Acids (FISH OIL) 1000 MG Capsule Take 1 Capsule by mouth in the morning. Womens Multi Oral Capsule Take by mouth . guaiFENesin ER 600 MG Oral Tablet Extended Release 12 Hour (Mucinex) Take 1 Tablet by mouth 2 times a day as needed for Congestion. Take with plenty of water. Do not cut, crush or chew 40 Tablet 2 Vitamin B Complex Oral Tablet Take 1 Tablet by mouth in the morning. No current facility-administered medications for this visit. ALLERG IES: Patient has no known allergies. OBJECTIVE: GEN: Healthy, alert, no distress, appears oriented, pleasant and cooperative. SKIN: Detailed exam of hair, face including lids and lips and neck completed and are normal except: 1. Rolling scars on cheeks, scattered pink papules and closed comedones, about 10 ASSESS MENT/PLAN: 1. Acne, moderate - intermittent flares, defers hormonal trt b/c planning , will use occasional BPO wash in shower, azelaic acid susp OTC up to twice daily as needed, keflex 500 mg BID for 3weeks for current inflammatory lesions. Discussed sun protection with patient including proper use of sunscreens and protective clothing. Follow-up: PDL in fall for scars and erythema, pt noted improvement after prior trts There were no barriers tolearning and no other pain was related to today's visit. The patient and/or person accompanying patient demonstrates understanding of the visit and treatment. Betsy Silvestre MD 11/25/2022 9:55 AM documented in this encounter Nursing Notes * Laurie Larson LPN - 11/25/2022 9:47 AM EDT Patient identified by name and date of . Do you have any concerns about pain management for today's visit? No Living Will or Advance Directive for Health Care as noted on problem list. [facility] is a way you can talk to your provider online through e-mail. Would you like to sign up? I can activate it for you? ALREADY ACTIVE Chief Complaint Patient presents with Acne Pt here regarding acne. Uses OTC products to treat. documented in this encounter Plan of Treatment Upcoming Encounters Date Type Specialty Care Team Description 12/21/2022 Office Visit Dermatology Betsy Silvestre MD [address] [facility] [place] [address] Sp, Pulse Dye V Beam [address] [facility] [place] [address] 02/20/2023 Office Visit Gynecology Obstetrics Judith Thomas PA-C [address] [place] [address] 05/11/2023 Office Visit Family Medicine Dagoberto Spring DO [address] [place] [address] Health Maintenance Due Date Last Done Comments Hepatitis B (1 of 3 - 3-dose series) 1989 GARDASIL-HPV IMMUNIZATION SERIES (2 - 3-dose series) 10/24/2014 09/26/2014 (Declined) COVID-19 Vaccine (3 - Moderna series) 05/05/2021 03/10/2021, 02/10/2021 PAP SMEAR-ANNUAL AGES 18-100 01/11/2022 01/11/2021, 01/02/2018, 01/02/2018, Additional history exists Influenza Vaccine (FLU shot) (#1) 2022 02/07/2020 Depression Screening, Annual for Pts 12 and Over 04/12/2023 04/12/2022 DTaP,Tdap,and Td Vaccines (3 - [...] as of this encounter Visit Diagnoses Diagnosis Acne vulgaris- Primary Other acne Acne scarring Scar condition and fibrosis of skin documented in this encounter Care Teams Pipe Tester Relationship Specialty Start Date End Date Dagoberto Spring DO [address] [place] [address] PCP - General Family Medicine 04/12/22 documented as of this encounter
--- OUTSIDE RECORDS SUMMARY | 2023-03-20 23:42 | External Medical Summary | Summary of Care ---
Author Name Unknown Organization [facility] Address [address] [place] [address] Phone [phone] Care Team Providers Care Web Ui Software Engineer Name Role Phone Saw Dagoberto Amesceferino Primary Care Provider Reason for Visit * Reason Comments Phototherapy Patient is here for laser treatment to face for scars and erythema on face Encounter Details Date Type Department Care Team Description 12/21/2022 Office Visit Dermatology [facility] Radha Neenah [address] [facility] [place] [address] Betsy Silvester MD [address] [facility] [place] [address] Sp, Pulse Dye V Beam [address] [facility] [place] [address] Acne vulgaris*; Skin erythema Allergies No known active allergiesdocumented as of this encounter (statuses as of 12/21/2022) Medications Medication Sig Dispensed Refills Start Date End Date Status cetirizine (ZYRTEC) 10 MG Tablet Take 10 mg by mouth. 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 documented as of this encounter (statuses as of 12/21/2022) Resolved Problems Problem Noted Date Resolved Date Supervision of normal first 04/16/2020 01/11/2021 Viral URI with cough 06/29/2016 05/17/2017 Viral pharyngitis 06/29/2016 05/17/2017 Chronic rhinitis 06/29/2016 02/17/2017 Migraine 04/12/2022 documented as of this encounter (statuses as of 12/21/2022) Immunizations Name Administration Dates Next Due COVID-19 [...] Progress Notes * Betsy Silvestre MD - 12/21/2022 8:34 AM EDT SUBJECTIVE: Hx acne with scarring and erythema per prior visits Date Last Appointment: 11/25/2022 (in office), Visit date not found (telemedicine) OBJECTIVE: cheeks, forehead, chin, nose - erythema, rolling scars, and few crusted pink papules ASSESSMENT/PLAN: acne, erythema, and scars Pulse dye laser treatment 595nm today The procedure, risks, benefits, alternatives and expected outcomes were discussed with the patient and verbal consent was obtained. Time out called. Patient identified, procedure verified, site identified and verified. Patient and staff present in agreement. Eye protection placed. Laser surgery was performed with 595nm PDL using 3x10 spot size with 20 pulse width and 15 Joules of energy number ofpulses 169. Patient instructed in routine post-op care. Discussed sun protection with patient including proper use of sunscreens and protective clothing. *no charge Follow-up: as needed, pt will call 12/21/2022 8:34 AM Betsy Silvestre MD documented in this encounter Nursing Notes * Ria Loving LPN - 12/21/2022 8:14 AM EDT Patient identified by name and date of . Do you have any concerns about pain management for today's visit? No Living Will or Advance Directive for Health Care as noted on problem list. [facility] is a way you can talk to your provider online through e-mail. Would you like to sign up? I can activate it for you? ALREADY ACTIVE Chief Complaint Patient presents with Phototherapy Patient is here for laser treatment to face for scars and erythema on face documented in this encounter Plan of Treatment Upcoming Encounters Date Type Specialty Care Team Description 02/20/2023 Office Visit Gynecology Obstetrics Judith Thomas PA-C [address] [place] [address] 05/11/2023 Office Visit Family Medicine Dagoberto Spring DO [address] [place] [address] Health Maintenance Due Date Last Done Comments [...] Diagnoses Diagnosis Acne vulgaris- Primary Other acne Skin erythema Unspecified erythematous condition documented in this encounter Care Teams Web Ui Software Engineer Relationship Specialty Start Date End Date Dagoberto Spring DO [address] [place] [address] PCP - General Family Medicine 04/12/22 documented as of this encounter
--- OUTSIDE RECORDS SUMMARY | 2023-03-20 23:42 | External Medical Summary | Summary of Care ---
Author Name Unknown Organization [facility] Address [address] [place] [address] Phone [phone] Care Team Providers Care Bull Driver Name Role Phone Saw Dagoberto Amesceferino Primary Care Provider Reason for Visit * Reason Comments New Visit Encounter Details Date Type Department Care Team Description 01/26/2023 Nurse Only Gynecology/Obstetrics [facility] [address] [place] [address] , Nurse Research And Development Director [facility] [address] [place] [address] New Visit Allergies No known active allergiesdocumented as of this encounter (statuses as of 01/26/2023) Medications Medication Sig Dispensed Refills Start Date End Date Status cetirizine (ZYRTEC) 10 MG Tablet Take 1 Tablet by mouth. 1 tab twice daily 0 Active [place]-3 Fatty Acids (FISH OIL) 1000 MG Capsule Take 1 Capsule by mouth in the morning. 0 Active /Iron Oral Tablet Take by mouth. 0 Active Womens Multi Oral Capsule Take by mouth . 0 01/26/2023 Discontinued (Medication List Clean Up) guaiFENesin ER 600 MG Oral Tablet Extended Release 12 Hour (Mucinex)Indicati ons:Acute maxillary sinusitis, recurrence not specified Take 1 Tablet by mouth 2 times a day as needed for Congestion. Take with plenty of water. Do not cut, crush or chew 40 Tablet 2 09/13/2022 01/26/2023 Discontinued (Medication List Clean Up) Vitamin B Complex Oral Tablet Take 1 Tablet by mouth in the morning. 0 01/26/2023 Discontinued (Medication List Clean Up) Cephalexin 500 MG Oral Capsule (Keflex)Indicatio ns:Acne vulgaris 1 capsule daily for 3 weeks 21 Capsule 1 11/25/2022 01/26/2023 Discontinued (Medication List Clean Up) 28-0.8 MG Oral Tablet Take by mouth. 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 Never true 07/09/2019 Comments Yes Sex Assigned at Date Recorded Not on file Job Start Date Occupation Industry Not on file Not on file Not on file documented as of this encounter Last Filed Vital Signs Vital Sign Reading Time Taken Comments Blood Pressure - - Pulse - - Temperature - - Respiratory Rate - - Oxygen Saturation - - Inhaled Oxygen Concentration - - Weight 65.8 kg (145 lb) 01/26/2023 8:36 AM EDT Height 160 cm (5' 3") 01/26/2023 8:36 AM EDT Body Mass Index 25.69 01/26/2023 8:36 AM EDT documented in this encounter Progress Notes * Lili Casas LPN - 01/26/2023 8:38 AM EDT . Mild nausea. Considering H delivery. Particularly interested in a womens birthing center by the [facility]? Patient here for initial ob visit. No transferred records. Are you planning a home delivery?No Pt advised , If at anytime during your you decide to pursue a home , please notify our office. Patient oriented to the Women's Health department and current providers in the practice.We discuss the the options of delivery, [facility] vs [facility] with midwives. Reviewed frequency of visits. Reviewed outreach clinics and how to contact providers during regularoffice hours and after office hours. Educational packet reviewed. [facility] is a way you can talk to your provider online through e-mail. Would you like to sign up, I can activate it for you. ALREADY ACTIVE Patient advised not to use [facility] for urgent related problems. Lili Casas LPN documented in this encounter Plan of Treatment Upcoming Encounters Date Type Specialty Care Team Description 01/31/2023 Imaging Radiology 01/31/2023 Office Visit Gynecology Obstetrics Jena Jiang CRNP [address] [place] [address] 02/20/2023 Office Visit Gynecology Obstetrics Judith Thomas PA-C [address] [place] [address] 05/11/2023 Office Visit Family Medicine Dagoberto Spring DO [address] [place] [address] Health Maintenance Due Date Last Done Comments [...] filedocumented as of this encounter Care Teams Bull Driver Relationship Specialty Start Date End Date Dagoberto Spring DO [address] [place] [address] PCP - General Family Medicine 04/12/22 documented as of this encounter
--- OUTSIDE RECORDS SUMMARY | 2023-03-20 23:42 | External Medical Summary | Summary of Care ---
Author Name Unknown Organization [facility] Address [address] [facility] [address] Phone [phone] Care Team Providers Care Wire Frame Lamp Shade Maker Name Role Phone Dagoberto Spring DO Primary Care Provider Encounter Details Date Type Department Care Team Description 10/21/2022 Result Scan Unspecified Department Dagoberto Spring DO [address] [place] [address] <No scans attached> Allergies No known active allergiesdocumented as of this encounter (statuses as of 10/25/2022) Medications Medication Sig Dispensed Refills Start Date End Date Status cetirizine (ZYRTEC) 10 MG Tablet Take 10 mg by mouth. 1 tab twice daily 0 Active [place]-3 Fatty Acids (FISH OIL) 1000 MG Capsule Take 1 Capsule by mouth in the morning. 0 Active Clindamycin Phosphate 1 % External GelIndications:Acne vulgaris apply to affected area of face in AM as needed 30 g 1 04/28/2020 Active Womens Multi Oral Capsule Take by [...] by mouth in the morning. 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 documented as of this encounter (statuses as of 10/25/2022) Resolved Problems Problem Noted Date Resolved Date Supervision of normal first 04/16/2020 01/11/2021 Viral URI with cough 06/29/2016 05/17/2017 Viral pharyngitis 06/29/2016 05/17/2017 Chronic rhinitis 06/29/2016 02/17/2017 Migraine 04/12/2022 documented as of this encounter (statuses as of 10/25/2022) Immunizations Name Administration Dates Next Due COVID-19 [...] on file documented as of this encounter Plan of Treatment Upcoming Encounters Date Type Specialty Care Team Description 02/20/2023 Office Visit Gynecology Obstetrics Judith Thomas PA-C [address] [place] [address] 04/13/2023 Office Visit Family Medicine Dagoberto Spring DO [address] [place] [address] Health Maintenance Due Date Last Done Comments Hepatitis B (1 of 3 - 3-dose series) 1989 GARDASIL-HPV IMMUNIZATION SERIES (2 - 3-dose series) 10/24/2014 09/26/2014 (Declined) COVID-19 Vaccine (3 - Moderna series) 05/05/2021 03/10/2021, 02/10/2021 PAP SMEAR-ANNUAL AGES 18-100 01/11/2022 01/11/2021, 01/02/2018, 01/02/2018, Additional history exists Influenza Vaccine (FLU shot) (Season Ended) 2022 02/07/2020 Depression Screening, Annual for Pts [...] Procedure Name Priority Date/Time Associated Diagnosis Comments OUTSIDE LAB RESULTS 10/21/2022 documented in this encounter Results * OUTSIDE LAB RESULTS (10/21/2022) 10/21/2022 Dagoberto Spring DO LABORATORY documented in this encounter Care Teams Wire Frame Lamp Shade Maker Relationship Specialty Start Date End Date Dagoberto Spring DO [address] [place] [address] PCP - General Family Medicine 04/12/22 documented as of this encounter
--- NOTE | 2023-03-21 07:31 | Obstetrical Progress Note ---
Date of Service March 21, 2023 Assessment & Plan (1) demise > 22 weeks, delivered, current hospitalization: Pt doing well No complaints Seen by Karol Diaz RN Minimal bleeding Am Labs pending will disch home Results & Data Vital Signs (Past 12 Hours) Vital Signs Temp Pulse Resp BP 03/21/23 07:15 84 116/58 L 03/21/23 03:29 36.8 C 77 18 98/52 L 03/20/23 23:47 36.9 C 95 H 18 124/58 L 03/20/23 20:52 99 H 18 119/67 03/20/23 20:37 107 H 129/66 03/20/23 20:22 109 H 118/68 03/20/23 20:07 108 H 122/61 03/20/23 19:51 101 H 18 123/62 03/20/23 19:37 104 H 112/59 L
--- NOTE | 2023-03-21 07:39 | Discharge Summary ---
Date of Service March 21, 2023 Admission HPI Per Admitting Provider Ref. to H&P Discharge Data Consultations 03/20/23 16:58 Consult Anesthesiology Routine Procedures Performed Vaginal delivery Hospital Course (1) demise > 22 weeks, delivered, current hospitalization: Plan Patient delivered a nonviable at 15 weeks. placenta was spontaneously as well. This morning patient is doing well and is being discharged home in stable condition. Discharge Instructions Patient is discharged home in stable condition with instructions including medication appointment and follow-up.
[2023-03-21] MEDS ORDERED: PRENATAL VITAMIN 1 TAB PO SCH (08:00)
[2023-03-21 09:28] LABS: Hematocrit (blood only) 30.2 % (37.0-47.0); Hemoglobin 10.6 g/dl (12.0-16.0); Mean Corpuscular Hemoglobin 31.9 pg (25.0-34.0); Mean Corpuscular Hgb Conc 35.1 g/dL (32.0-36.0); Mean Platelet Volume 9.7 fL (9.4-12.4); Platelet Count 150 K/uL (130-400); RDW Coefficient of Variation 12.5 % (11.5-14.5); RDW Standard Deviation 41.6 fL (36.4-46.3); Red Blood Count 3.32 M/uL (4.20-5.40); White Blood Count 19.37 K/ul (4.8-10.8)
[2023-03-21] MEDS ORDERED: bisacodyL 5 MG TABEC PO SCH (20:00)
[2023-03-23 14:16] LABS: 7-Aminoclonaz, Confirm NEGATIVE ng/mL (<25); Hydro-Alp Ur, GC/MS NEGATIVE ng/mL (<25); Hydroxyethylflurazepam, Conf NEGATIVE ng/mL (<50); Hydroxymidazolam Ur, GC/MS 582 ng/mL (<50); Hydroxytriazolam NEGATIVE ng/mL (<50); Lorazepam, Ur GC/MS NEGATIVE ng/mL (<50); Nordiazepam, Confirm NEGATIVE ng/mL (<50); Oxazepam Ur, GC/MS NEGATIVE ng/mL (<50); Temazepam, Confirm NEGATIVE ng/mL (<50)
--- NOTE | 2023-03-24 10:14 | Coding Query ---
CODING QUERY To promote full compliance with coding requirements relating to patient care, provider participation is requested in all cases of blower feeder dyed raw stock uncertainty. Please assist us with the question(s) below: Coding Question(s): There is documentation of, "Patient delivered a nonviable infant at 15 weeks", as well as documentation of, " demise > 22 weeks". Please clarify below, the weeks of gestation: (x ) 15 weeks gestation demise ( ) Greater than 22 weeks gestation demise ( ) Other: Please Specify Physician's Response(s): Thank you Maame Ellis Principal Diagnosis: "that condition established after study, to be chiefly responsible for occasioning the admission of the patient to the hospital for care." Co-Existing Principal Diagnosis: "when two or more diagnoses equally meet the criteria for principal diagnosis as determined by the circumstances of admission, diagnostic work up, and/or therapy provided, and the Alphabetic Index, Tabular List, or another coding guideline does not provide sequencing direction, any one of the diagnoses may be sequenced first." "When the physician has documented what appears to be a current diagnosis in the body of the record, but has not included the diagnosis in the final diagnostic statement, the physician should be asked whether the diagnosis should be added." (Source Coding [facility] 2 QTR90. p3-4) KIN
[2023-03-24] MEDS ORDERED: cephALEXin 500 MG CAP PO SCH (21:00)
[2023-03-27 21:12] LABS: CMV IgG Antibody <0.60 U/mL; Herpes Simplex Ab IgG-1 <0.90 INDEX; Herpes Simplex Ab IgG-2 <0.90 INDEX; Rubella IgG 1.44 INDEX
[2023-03-28 08:46] LABS: Toxoplasma gondii IgM Ab, EIA <8.00 AU/mL
== END 2023-03-21 11:30 | disposition home or self-care (01) | DRG 779 ==
LOC: 4S1 15:34

== ENCOUNTER 2024-05-31 21:17 | Inpatient (IN) ==
[2024-05-31] MEDS ORDERED: LIDOCAINE 1% LOCAL 20 ML VIAL INFIL PRN (21:40)
[2024-05-31] MEDS ORDERED: OXYTOCIN 30 UNITS/NSS 30 UNITS/500 ML BAG IV PRN (21:40)
--- NOTE | 2024-05-31 21:47 | History & Physical Report ---
Date of Service May 31, 2024 Assessment & Plan (1) Delayed delivery after SROM (spontaneous rupture of membranes): Present on Admission?: Yes (2) Normal labor: Present on Admission?: Yes Plan Admit to L and D NPO/IV fluids Pitocin to augment labor when the pt is ready pain meds including epidural as the pt desires History of Present Illness Chief Complaint: Pt 33 yr old IUP at 39 weeks , SROM, early labor Primary Care Provider: Dagoberto Spring DO pt 33 yr old IUP at 39 weeks came to L and D c/o Leaking of fluid per vagina, uterine contractions q 5 to 8 min, Denies vaginal bleeding. reports good movement. Pt had prior miscarriage at 15 weeks. pt has pain, she declines Pitocin and Epidural for now. Pt desires to go with minimal intervention in labor. Pt has Dula who will support this labor and delivery. GBS Negative Allergies Allergy/AdvReac Type Severity Reaction Status Date / Time No Known Allergies Allergy Verified 04/21/23 07:32 Home Medications Medication Instructions Recorded Confirmed Type cetirizine 10 mg tablet (Zyrtec) 10 mg PO QAM 11/26/20 04/21/23 History prenat.vits,aurelio,asu-[id number] 1 tab PO QAM 11/26/20 04/21/23 History ibuprofen 600 mg tablet 600 mg PO Q4H PRN fever or pain 11/29/20 04/21/23 Rx #30 tabs ciprofloxacin HCl 500 mg tablet 500 mg PO BID #6 tabs 04/21/23 Rx (Cipro) ibuprofen 600 mg tablet 600 mg PO Q6H #30 tabs 04/21/23 Rx Patient History Medical History (spontaneous vaginal delivery) 2020 TMJ (temporomandibular joint disorder) wears overnight houseperson. denies hx locking. History of migraine Surgical History History of tonsillectomy H/O wisdom tooth extraction Social History Smoking Status: Never smoker Second Hand Exposure: No; Do You Dip or Chew Tobacco: No; Hx Alcohol Use: No Hx Substance Use: No Preferred Language: Mauritian Communication Ability: Effective Visual Impairment: No Limitations Hearing Ability: Normal Financial Market Dealer Required: No Beliefs That Will Affect Care: None marital status: Current Living Situation: Spouse and Family Feels Safe at Home: Yes Assistive Devices: Glasses OB History Review of Systems All systems reviewed & are unremarkable except as noted in HPI & below as per Subjective / HPI as per Subjective / HPI as per Subjective / HPI as per Subjective / HPI as per Subjective / HPI as per Subjective / HPI Physical Exam Constitutional: WD/WN, vitals as above Respiratory: normal respiratory effort, lungs clear to auscultation Cardiovascular: RRR, no murmur, no edema Gastrointestinal (Abdomen): normal bowel sounds, soft, nontender, no hepatosplenomegaly Psychiatric: A+Ox3, euthymic affect Genitourinary: no vaginal lesions, no adnexal mass OB Exam Abdomen: + fundal height (41 cm), + heart tones and + vertex Manual OB Exam: + cervical dilation 3 cm, + cervical effacement 80%, + station -2 and + amniotic fluid clear OB Exam Monitor Tracing: + external FHT monitor used, + external uterine monitor used, + category I and + normal FHT variability Results & Data Vital Signs (Past 12 Hours) Vital Signs Pulse BP 05/31/24 21:30 93 H 129/78 Monitoring External Monitor 140s, Good variability, positive accelerations Tocodynamometer q 5 min
[2024-05-31 22:35] LABS: Hematocrit (blood only) 39.9 % (37.0-47.0); Hemoglobin 13.9 g/dl (12.0-16.0); Mean Corpuscular Hemoglobin 31.4 pg (25.0-34.0); Mean Corpuscular Hgb Conc 34.8 g/dL (32.0-36.0); Mean Corpuscular Volume 90.1 fL (80.0-100.0); Mean Platelet Volume 10.4 fL (9.4-12.4); Platelet Count 159 K/uL (130-400); RDW Coefficient of Variation 12.4 % (11.5-14.5); Red Blood Count 4.43 M/uL (4.20-5.40); White Blood Count 17.11 K/ul (4.8-10.8)
[2024-06-01] MEDS ORDERED: OXYTOCIN 30 UNITS/NSS 30 UNITS/500 ML BAG IV PRN (00:07)
[2024-06-01] MEDS ORDERED: BENZOCAINE 20% SPRY 85 APPLN/85 GM CAN EXT PRN (00:07)
[2024-06-01] MEDS ORDERED: HYDROCORTISONE ACETATE 25 MG SUPP PR PRN (00:07)
--- NOTE | 2024-06-01 00:08 | Delivery Summary ---
Vaginal Delivery Summary Date of Service June 01, 2024 Vaginal Delivery Summary pt fully dilated and pushing, placed in squatting pt as the pt desires that way, prepped and draped in usual fashion, pt pushed for few minutes, pt delivered live viable male in OA position, pt now in dorsal lithotomy position, placed the on the mothers abdomen, bulb suctioned nose and mouth, cord clamped and cut by the FOB after 2 min of delayed clamping. placenta delivered spontaneously and complete. No lacerations noted. IV Pitocin started. EBL; 50 cc APGARS: 8, 9 at 1 and 5 min Time of baby : 11: 57 PM [place] of placenta delivery: 12: 03 AM Jun 0105/2024
[2024-06-01] MEDS: ACETAMINOPHEN 325 MG TAB PO PRN (03:14)
[2024-06-01] MEDS: IBUPROFEN 600 MG TAB PO PRN (08:28)
[2024-06-01] MEDS: DOCUSATE SODIUM 100 MG CAP PO SCH (08:28)
[2024-06-01] MEDS: PRENATAL VITAMIN 1 TAB PO SCH (08:28)
--- NOTE | 2024-06-01 09:13 | Obstetrical Progress Note ---
Date of Service June 01, 2024 Assessment & Plan Admission and Anticipated Discharge Date Admission Date: May 31, 2024 Subjective Patient is seen and examined. She feels well, no complaints. Ambulating without dizziness Voiding without difficulty Tolerating regular diet with out N&V Bleeding is minimal No fever/ chills/ CP/ SOB/ N&V/ Leg pain Breast feeding without problems Lab Results 05/31/24 Range/Units 22:21 WBC 17.11 H (4.8-10.8) K/ul RBC 4.43 (4.20-5.40) M/uL Hgb 13.9 (12.0-16.0) g/dl Hct 39.9 (37.0-47.0) % MCV 90.1 (80.0-100.0) fL MCH 31.4 (25.0-34.0) pg MCHC 34.8 (32.0-36.0) g/dL RDW Std Deviation 41.0 (36.4-46.3) fL RDW Coeff of [place] 12.4 (11.5-14.5) % Plt Count 159 (130-400) K/uL MPV 10.4 (9.4-12.4) fL Treponema pallidum Ab Negative (Negative) Vital Signs Temp Pulse Pulse Pulse Resp BP BP 06/01/24 07:41 36.7 C 88 18 124/80 06/01/24 03:00 37 C 82 18 139/83 06/01/24 02:29 89 122/72 06/01/24 01:56 112 H 142/77 H 06/01/24 01:13 98 H 129/72 06/01/24 00:38 95 H 133/72 05/31/24 21:58 36.9 C 20 05/31/24 21:30 93 H 129/78 Pulse Ox O2 Del Method 06/01/24 07:41 97 Room Air 06/01/24 03:00 98 Room Air 06/01/24 02:29 06/01/24 01:56 06/01/24 01:13 06/01/24 00:38 05/31/24 21:58 05/31/24 21:30 PE: General: Alert, orientedx3, NAD Abd: soft, NT, fundus firm, below Umbilicus Perineum intact, Lochia rubra minimal Ext; NT, no edema AP: 33 yo s/p , ppd# 1 VSS Afebrile doing well Continue routine care All questions were answered D/C home tomorrow Results & Data Vital Signs (Past 12 Hours) Vital Signs Temp Pulse Pulse Pulse Resp BP BP 06/01/24 07:41 36.7 C 88 18 124/80 06/01/24 03:00 37 C 82 18 139/83 06/01/24 02:29 89 122/72 06/01/24 01:56 112 H 142/77 H 06/01/24 01:13 98 H 129/72 06/01/24 00:38 95 H 133/72 05/31/24 21:58 36.9 C 20 05/31/24 21:30 93 H 129/78 Pulse Ox O2 Del Method 06/01/24 07:41 97 Room Air 06/01/24 03:00 98 Room Air 06/01/24 02:29 06/01/24 01:56 06/01/24 01:13 06/01/24 00:38 05/31/24 21:58 05/31/24 21:30
[2024-06-01 16:11] VITALS: O2SAT 98
[2024-06-02 06:58] LABS: Hematocrit (blood only) 33.8 % (37.0-47.0); Hemoglobin 11.4 g/dl (12.0-16.0); Mean Corpuscular Hemoglobin 31.4 pg (25.0-34.0); Mean Corpuscular Hgb Conc 33.7 g/dL (32.0-36.0); Mean Corpuscular Volume 93.1 fL (80.0-100.0); Mean Platelet Volume 10.5 fL (9.4-12.4); Platelet Count 132 K/uL (130-400); RDW Coefficient of Variation 12.9 % (11.5-14.5); RDW Standard Deviation 44.3 fL (36.4-46.3); Red Blood Count 3.63 M/uL (4.20-5.40); White Blood Count 16.04 K/ul (4.8-10.8)
[2024-06-02 07:49] VITALS: BP 123/79; RESP 16; TEMP 97.9
--- NOTE | 2024-06-02 10:14 | Obstetrical Progress Note ---
Date of Service June 02, 2024 Assessment & Plan Admission and Anticipated Discharge Date Admission Date: May 31, 2024 Subjective Patient is seen and examined. She feels well, no complaints. Ambulating without dizziness Voiding without difficulty Tolerating regular diet with out N&V Bleeding is minimal No fever/ chills/ CP/ SOB/ N&V/ Leg pain Breast feeding without problems Vital Signs Temp Pulse Resp BP Pulse Ox O2 Del Method 06/02/24 07:41 36.6 C 86 16 123/79 98 Room Air 06/01/24 23:45 36.8 C 76 14 109/67 Room Air 06/01/24 19:30 36.4 C L 89 14 142/83 H Room Air 06/01/24 16:09 37 C 88 16 133/83 98 Room Air 06/01/24 11:30 36.6 C 76 16 116/76 98 Room Air Lab Results 05/31/24 06/02/24 Range/Units 22:21 06:25 WBC 17.11 H 16.04 H (4.8-10.8) K/ul RBC 4.43 3.63 L (4.20-5.40) M/uL Hgb 13.9 11.4 L (12.0-16.0) g/dl Hct 39.9 33.8 L (37.0-47.0) % MCV 90.1 93.1 (80.0-100.0) fL MCH 31.4 31.4 (25.0-34.0) pg MCHC 34.8 33.7 (32.0-36.0) g/dL RDW Std Deviation 41.0 44.3 (36.4-46.3) fL RDW Coeff of [place] 12.4 12.9 (11.5-14.5) % Plt Count 159 132 (130-400) K/uL MPV 10.4 10.5 (9.4-12.4) fL Treponema pallidum Ab Negative (Negative) PE: General: Alert, orientedx3, NAD Abd: soft, NT, fundus firm, below Umbilicus Perineum intact, Lochia rubra minimal Ext; NT, no edema AP: 33 yo s/p , ppd# 2 VSS Afebrile doing well Continue routine care Discussed iron, PNV intake, contraception, when to call All questions were answered D/C home , f/u in office Results & Data Vital Signs (Past 12 Hours) Vital Signs Temp Pulse Resp BP Pulse Ox O2 Del Method 06/02/24 07:41 36.6 C 86 16 123/79 98 Room Air 06/01/24 23:45 36.8 C 76 14 109/67 Room Air
[2024-06-02] MEDS: DIPHTHER/TETAN/PERTUS Vaccine (Tdap, Adol/Adult) 0.5mL IM ONE (12:50)
[2024-06-02 13:20] VITALS: PULSE 82
[2024-06-02] MEDS ORDERED: bisacodyL 5 MG TABEC PO SCH (20:00)
[2024-06-03] MEDS ORDERED: bisacodyL 10 MG SUPP PR PRN (00:07)
== END 2024-06-02 14:22 | disposition home health service (06) | DRG 807 ==
LOC: OPB 21:17 → 4S1 21:18 → 4E2 06-01 02:59